=== PATIENT | male | born 2005 | race Caucasian/White ===

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

== ENCOUNTER 2023-04-06 16:38 | Inpatient (IN) | payer MEDICAID, SELFPAY ==
[2023-04-06 16:39] VITALS: BP 142/84; PULSE 100; RESP 18; TEMP 36.6; O2SAT 97; BMI 37.6
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
[2023-04-06 17:13] LABS: Add Urine Microscopic? NO; Charge for UA Resulting for Rev
[2023-04-06 17:19] LABS: Bilirubin Urine Neg (Negative); Blood Urine Neg (Negative); Glucose Urine UA Norm (Normal); Ketones Urine Negative (Negative); Leukocyte Esterase Urine Negative (Negative); Nitrate Urine Negative (Negative); Protein Urine Neg (Negative); Urine Appearance Clear (CLEAR); Urine Color Yellow (Yellow); Urobilinogen Urine Norm (Negative); pH Urine 6 (5-7)
[2023-04-06 17:49] VITALS: RESP 18; O2SAT 100
[2023-04-06 17:57] VITALS: BP 149/91; PULSE 84; RESP 16; TEMP 36.5; O2SAT 96
[2023-04-06 18:01] LABS: Basophils # 0.1 10^3/uL (0.0-0.1); Basophils % 0.8 %; Eosinophils # 0.2 10^3/uL (0.0-0.8); Hematocrit 50.2 % (37-53); Lymphocytes # 2.7 10^3/uL (1.5-6.5); Mean Corpuscular HGB Conc 32.7 g/dL (30-55); Mean Corpuscular Hemoglobin 29.5 pg (27-33); Mean Corpuscular Volume 90.3 fl (82-101); Mean Platelet Volume 10.4 fL (7.4-10.4); Monocytes # 0.8 10^3/uL (0.2-0.9); Neutrophils # 7.35 10^3/uL (1.8-8.0); Neutrophils % 65.8 %; Nucleated Red Blood Cells % 0 %; Platelet Count 227 10^3/cmm (157-399); Red Blood Count 5.56 10^6/uL (3.85-5.65); Red Cell Distribution Width 13.1 % (12.1-15.1); White Blood Count 11.16 10^3/uL (4.5-13.0)
[2023-04-06 18:29] LABS: Acetaminophen < 5.0 ug/mL (10-30); Alanine Aminotransferase 24 U/L (0-41); Albumin Level 3.9 g/dL (3.5-5.2); Alkaline Phosphatase 68 U/L (40-130); Aspartate Amino Transferase 18 U/L (0-40); Blood Urea Nitrogen 11 mg/dL (6-20); Calcium 9.2 mg/dL (8.5-10.5); Carbon Dioxide 20 mmol/L (22-29); Chloride 103 mmol/L (98-107); Globulin 3.4 g/dL (1.3-4.6); Glomerular Filtration Rate 173.6 mL/min (90-130); Glucose 107 mg/dL (65-115); Osmolality Calculated 278 mOsm/kg (285-295); Salicylate < 0.3 mg/dL (3-10); Sodium 134 mmol/L (136-145); Total Bilirubin 0.2 mg/dL (0.15-1.2); Total Protein 7.3 g/dL (6.6-8.7)
[2023-04-06 18:31] LABS: Anion Gap 14.9 (5-19); Potassium 3.9 mmol/L (3.5-5.1)
[2023-04-06 20:25] VITALS: BP 139/82; PULSE 115; RESP 18; TEMP 36.6; O2SAT 97
[2023-04-07 06:00] VITALS: BP 151/83; PULSE 77; RESP 16; TEMP 36.5; O2SAT 95
[2023-04-07] MEDS: escitalopram 10 mg Tablet 20 MG PO (12:24)
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
[2023-04-07 14:00] VITALS: BP 142/90; PULSE 88; RESP 18; TEMP 36.6; O2SAT 93
[2023-04-07] MEDS: acetaminophen 325 mg Tablet 650 MG PO (15:08)
[2023-04-07] MEDS: lurasidone 20 mg Tablet PO (17:59)
--- NOTE | 2023-04-07 18:02 | XRR_ITS ---
PROCEDURE INFORMATION: Exam: XR Right Wrist Exam date and time: 04/07/2023 6:58 PM Age: 17 years old Clinical indication: Right; Patient HX: RT wrist pain after punching wall TECHNIQUE: Imaging protocol: Radiologic exam of the right wrist. Views: 1 or 2 views. COMPARISON: No relevant prior studies available. FINDINGS: Bones/joints: Normal. Soft tissues: Normal. XR/XR wrist RT 2V [id number] IMPRESSION: No acute findings.
[2023-04-07 20:30] VITALS: RESP 16; TEMP 36.3
[2023-04-08 06:00] VITALS: BP 138/78; PULSE 107; RESP 18; TEMP 36.3; O2SAT 97
[2023-04-08] MEDS: escitalopram 10 mg Tablet 20 MG PO (08:16)
[2023-04-08 13:59] VITALS: BP 134/77; PULSE 85; RESP 17; TEMP 36.4; O2SAT 95
[2023-04-08] MEDS: lurasidone 20 mg Tablet PO (17:49)
[2023-04-08] MEDS: OLANZapine 5 mg ODT PO (18:45)
[2023-04-08 20:07] VITALS: BP 148/102; PULSE 88; RESP 16; TEMP 36.2; O2SAT 97
[2023-04-09 06:00] VITALS: BP 133/67; PULSE 80; RESP 16; TEMP 35.8; O2SAT 97
[2023-04-09] MEDS: escitalopram 10 mg Tablet 20 MG PO (08:48)
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
[2023-04-09 13:06] VITALS: BP 133/67; PULSE 80; RESP 16; TEMP 35.8; O2SAT 97
--- NOTE | 2023-04-09 18:16 | P.NPUPN_ITS ---
Subjective NPU 2 Subjective: John Hathaway is a 17 year old male with a history of multiple inpatient hospitalizations who presented to the emergency department for with increased thoughts of hurting himself and others. He had reported continued problems with anger and irritability. He was agreeable to a change in his medication to manage his mood swings. Mental Status Exam 2 MSE Comments: This is an obese white male in hospital scrubs with adequate grooming and limited eye contact. No abnormal movements except for psychomotor retardation. He was mostly cooperative with exam in moderate distress. Speech was productive with normal rate and volume. His mood was described stressed. His affect was irritable. Thought process was linear. Thought content: Patient endorsed suicidal ideation with no plan. He denied any homicidal ideation. there were no delusions reported or noted, he did not report auditory or visual hallucinations and did not appear to be attending to internal stimuli. Attention span was limited. and memory appeared poor with inability to recall specific information. He was alert and oriented times person and place. Insight, judgment and impulse control were impaired. Intellectual ability appears within normal limits. Vitals/I&O/Wt Last Vital Signs Temp 96.4 F L 04/09/23 13:06 Pulse 80 04/09/23 13:06 Resp 16 04/09/23 13:06 BP 133/67 04/09/23 13:06 Pulse Ox 97 04/09/23 13:06 O2 Del Method Room Air 04/09/23 06:00 Data NPU 04/06/23 17:50 04/06/23 17:50 A&P Assessment and plan (1) Bipolar disorder, curr episode mixed, severe, w/o psychotic features: (2) Unable to control anger: (3) Oppositional defiant disorder with chronic irritability and anger: (4) ADHD (attention deficit hyperactivity disorder), combined type: Plan This is a an 17-year-old white male previously diagnosed with oppositional defiant disorder, bipolar disorder, and adhd admitted with homicidal and suicidal ideation complaints of worsening irritability. He continues to have poor frustration tolerance and would likely benefit from trial of stimulant if mood is stabilized. 1. TO-15 minute med checks 2. Will gather collateral information 3. Engage patient in individual, group and milieu therapy 4. Continue latuda and lexapro as prescribed. 5. Right hand x-ray. Involuntary Hold Information 2 96 Hour Hold: 96 Hour Involuntary Admission: No 96 Hour Hold Ending Date: 0 08/13/22 96 Hour Hold Ending Time: 01:34 Attestations NPU 2 Medical Necessity Statement*: Psychiatric hospitalization is medically necessary to prevent access to lethal means, to reevaluate medication and to coordinate a safe discharge.? Patient's likely length of stay 1-2 days.? ? Coding Level of Care Code Acute Code for g Fwd Diagnoses Bipolar disorder, curr episode mixed, severe, w/o psychotic features F31.63 Unable to control anger R45.4 Oppositional defiant disorder with chronic irritability and anger F91.3; R45.4 ADHD (attention deficit hyperactivity disorder), combined type F90.2
== END 2023-04-09 14:20 | disposition home or self-care (01) | DRG 885 ==
LOC: ER 17:04 → NP 17:16
PROVIDERS: Emergency Medicine; Admitting Provider Psychiatry & Neurology Psychiatry; Emergency Provider Family Medicine; Visit Provider Psychiatry & Neurology Psychiatry
DX: F31.63 Bipolar disorder, current episode mixed, severe, without psychotic features (principal); R45.851 Suicidal ideations; F91.3 Oppositional defiant disorder; F90.2 Attention-deficit hyperactivity disorder, combined type; F60.3 Borderline personality disorder; J45.909 Unspecified asthma, uncomplicated; E66.9 Obesity, unspecified; Z68.39 Body mass index [BMI] 39.0-39.9, adult
CPT/HCPCS: 36415; 73100; 80053; 80307; 81003; 85025; 97150; 97165; 99285

== ENCOUNTER 2023-05-07 13:08 | Inpatient (IN) | payer MEDICAID, SELFPAY ==
[2023-05-07 13:10] VITALS: BP 151/82; PULSE 83; RESP 16; TEMP 36.6; O2SAT 99; BMI 40.6
--- NOTE | 2023-05-07 13:22 | W.ED.PSYCHS ---
HPI - Psych General: Chief Complaint: Psychiatric Symptoms Stated Complaint: SI Time Seen by Provider: 05/07/23 13:09 Source: patient Mode of arrival: ambulatory Limitations: no limitations History of Present Illness: 17-year-old male states that he has had a long history of depression along with bipolar disorder has had multiple inpatient [facility]. He states last 2 days has been having increasing thoughts of self-harm and suicidal thoughts. He states he is concerned he may harm himself and wants to get help. Associated symptoms: Reports depression and suicidal ideation Review of Systems Const: Denies: fever(s), chills, body aches or change in appetite ENMT: Denies: throat pain or dental pain Card: Denies: chest pain Resp: Denies: dyspnea GI: Denies: abdominal pain, nausea, vomiting or diarrhea Musc: Denies: neck pain or back pain Skin/Breast: Denies: rash Neuro: Denies: headache(s) Psych: Reports: depression and suicidal ideation [facility] PFSH: Medical History Bipolar disorder, curr episode mixed, severe, w/o psychotic features Psychiatric care No pertinent past medical history Surgical History No history of previous surgery Social History Smoking and tobacco/nicotine status: never used tobacco/nicotine Second hand smoke exposure: No Alcohol intake: former Substance/Drug Use: former Current gender identity: Male Physical Exam Const: COMMON NORMALS: no acute distress, patient oriented x3 and healthy appearing HENMT: COMMON NORMALS: normocephalic and atraumatic HEAD & SCALP: normocephalic and atraumatic Eye: COMMON NORMALS: Equal, round and reactive pupils present and EOMs intact bilaterally PUPIL: Yes Equal, round and reactive pupils present Neck/C-Spine: COMMON NORMALS: full ROM and supple Chest: COMMONS NORMALS: normal inspection of the chest and normal palpation of entire chest wall Resp: COMMON NORMALS: normal respiratory effort, No retractions, No use of accessory muscles and clear to auscultation bilaterally AUSCULTATION: clear to auscultation bilaterally Cardio: COMMON NORMALS: regular rate, regular rhythm and No murmurs present (Cardio) RATE: regular rate RHYTHM: regular rhythm GI: COMMON NORMALS: Normal to inspection, nondistended, normoactive bowel sounds present, Soft to palpation, non-tender and no masses PALPATION: Yes Soft to palpation Extremity: COMMON NORMALS: normal to inspection and full ROM Neuro: COMMON NORMALS: patient oriented x3, moves all extremities and no focal motor deficits Psych: COMMON NORMALS: mental status grossly normal, Normal thought process present and cooperative THOUGHT PROCESS: Normal thought process present Skin: COMMON NORMALS: no rashes or lesions noted and no wounds GENERAL SKIN EXAM: no rashes or lesions noted Course Vital Signs: Vital signs: Vital Signs Temperature 97.8 F 05/07/23 13:10 Pulse Rate 83 05/07/23 13:10 Respiratory Rate 16 05/07/23 13:10 Blood Pressure 151/82 05/07/23 13:10 Pulse Oximetry 99 05/07/23 13:10 MDM - Psych Medical Decision Making Patient presents here with Medical Records I reviewed the patient's medical records. Lab Data I reviewed the patient's lab results. 05/07/23 13:40 05/07/23 13:40 Laboratory Results WBC 11.52 10^3/uL (4.5-13.0) 05/07/23 13:40 RBC 5.37 10^6/uL (3.85-5.65) 05/07/23 13:40 Hgb 16.00 g/dL (13.2-15.6) H 05/07/23 13:40 Hct 48.8 % (37-53) 05/07/23 13:40 MCV 90.9 fl (82-101) 05/07/23 13:40 MCH 29.8 pg (27-33) 05/07/23 13:40 MCHC 32.8 g/dL (30-55) 05/07/23 13:40 RDW 13.6 % (12.1-15.1) 05/07/23 13:40 Plt Count 310 10^3/cmm (157-399) 05/07/23 13:40 MPV 10.7 fL (7.4-10.4) H 05/07/23 13:40 Neut % (Auto) 61.5 % 05/07/23 13:40 Lymph % (Auto) 29.3 % 05/07/23 13:40 Mckenzie % (Auto) 6.6 % 05/07/23 13:40 Eos % (Auto) 1.3 % 05/07/23 13:40 Baso % (Auto) 1.0 % 05/07/23 13:40 Neut # (Auto) 7.08 10^3/uL (1.8-8.0) 05/07/23 13:40 Lymph # (Auto) 3.4 10^3/uL (1.5-6.5) 05/07/23 13:40 Mckenzie # (Auto) 0.8 10^3/uL (0.2-0.9) 05/07/23 13:40 Eos # (Auto) 0.2 10^3/uL (0.0-0.8) 05/07/23 13:40 Baso # (Auto) 0.1 10^3/uL (0.0-0.1) 05/07/23 13:40 Nucleated RBC % (auto) 0 % 05/07/23 13:40 Nucleated RBCs # 0.0 /100WBC 05/07/23 13:40 Sodium 140 mmol/L (136-145) 05/07/23 13:40 Potassium 3.9 mmol/L (3.5-5.1) 05/07/23 13:40 Chloride 106 mmol/L (98-107) 05/07/23 13:40 Carbon Dioxide 21 mmol/L (22-29) L 05/07/23 13:40 Anion Gap 16.9 (5-19) 05/07/23 13:40 BUN 8 mg/dL (6-20) 05/07/23 13:40 Creatinine 0.6 mg/dL (0.7-1.2) L 05/07/23 13:40 GFR Calculation 173.6 mL/min (90-130) H 05/07/23 13:40 Glucose 89 mg/dL (65-115) 05/07/23 13:40 Calculated Osmolality 288 mOsm/kg (285-295) 05/07/23 13:40 Calcium 9.4 mg/dL (8.5-10.5) 05/07/23 13:40 Total Bilirubin 0.6 mg/dL (0.15-1.2) 05/07/23 13:40 AST 17 U/L (0-40) 05/07/23 13:40 ALT 23 U/L (0-41) 05/07/23 13:40 Alkaline Phosphatase 68 U/L (40-130) 05/07/23 13:40 Total Protein 7.7 g/dL (6.6-8.7) 05/07/23 13:40 Albumin 4.5 g/dL (3.5-5.2) 05/07/23 13:40 Globulin 3.2 g/dL (1.3-4.6) 05/07/23 13:40 Salicylates < 0.3 mg/dL (3-10) L 05/07/23 13:40 Acetaminophen < 5.0 ug/mL (10-30) L 05/07/23 13:40 Ethyl Alcohol < 10 mg/dL (0-10) 05/07/23 13:40 No radiology studies performed this visit Discharge Plan Discharge Condition: Stable Prescriptions: No Action escitalopram oxalate [Lexapro] 20 mg tablet 20 mg PO DAILY Qty: 30 3RF lurasidone [Latuda] 20 mg Tablet 20 mg PO 1800 30 Days Qty: 30 1RF Rx Instructions: take with at least 300 calories at 6-7 pm. Coding Level of Care Code ED Assistant Administrator for Lincoln Spencer
--- NOTE | 2023-05-07 13:45 | PC.NURSE ---
96 hour hold rights read and reviewed with patient. Patient verbalized understandings. Copy of rights left at the bedside.
[2023-05-07 13:50] LABS: Basophils # 0.1 10^3/uL (0.0-0.1); Eosinophils # 0.2 10^3/uL (0.0-0.8); Eosinophils % 1.3 %; Hematocrit 48.8 % (37-53); Lymphocytes # 3.4 10^3/uL (1.5-6.5); Lymphocytes % 29.3 %; Mean Corpuscular HGB Conc 32.8 g/dL (30-55); Mean Corpuscular Hemoglobin 29.8 pg (27-33); Mean Corpuscular Volume 90.9 fl (82-101); Mean Platelet Volume 10.7 fL (7.4-10.4); Monocytes # 0.8 10^3/uL (0.2-0.9); Monocytes % 6.6 %; Neutrophils # 7.08 10^3/uL (1.8-8.0); Neutrophils % 61.5 %; Nucleated Red Blood Cells % 0 %; Platelet Count 310 10^3/cmm (157-399); Red Blood Count 5.37 10^6/uL (3.85-5.65); Red Cell Distribution Width 13.6 % (12.1-15.1); White Blood Count 11.52 10^3/uL (4.5-13.0)
[2023-05-07 14:07] LABS: Acetaminophen < 5.0 ug/mL (10-30); Alanine Aminotransferase 23 U/L (0-41); Albumin Level 4.5 g/dL (3.5-5.2); Alcohol Level < 10 mg/dL (0-10); Alkaline Phosphatase 68 U/L (40-130); Anion Gap 16.9 (5-19); Aspartate Amino Transferase 17 U/L (0-40); Blood Urea Nitrogen 8 mg/dL (6-20); Calcium 9.4 mg/dL (8.5-10.5); Carbon Dioxide 21 mmol/L (22-29); Chloride 106 mmol/L (98-107); Creatinine Clr Calc Pharmacy 274.4291; Globulin 3.2 g/dL (1.3-4.6); Glomerular Filtration Rate 173.6 mL/min (90-130); Glucose 89 mg/dL (65-115); Osmolality Calculated 288 mOsm/kg (285-295); Potassium 3.9 mmol/L (3.5-5.1); Salicylate < 0.3 mg/dL (3-10); Sodium 140 mmol/L (136-145); Total Bilirubin 0.6 mg/dL (0.15-1.2); Total Protein 7.7 g/dL (6.6-8.7)
[2023-05-07 14:15] LABS: Amphetamines Screen Urine Negative (Negative); Barbiturates Screen Urine Negative (Negative); Benzodiazepines Screen Urine Negative (Negative); Cocaine Screen Urine Negative (Negative); Opiate Screen Urine Negative (Negative); PCP Screen Urine Negative (Negative); THC Screen Urine Negative (Negative)
[2023-05-07 16:06] VITALS: BP 146/77; PULSE 73; RESP 16; TEMP 36.3; O2SAT 98
[2023-05-07] MEDS: trazodone 50 mg Tablet PO (20:02)
[2023-05-07] MEDS: lurasidone 20 mg Tablet PO (20:03)
[2023-05-07 20:07] VITALS: BP 132/82; PULSE 80; RESP 18; TEMP 36.5; O2SAT 98
[2023-05-08 06:00] VITALS: BP 140/83; PULSE 99; RESP 17; TEMP 36.5; O2SAT 98
[2023-05-08] MEDS: escitalopram 10 mg Tablet 20 MG PO (08:28)
[2023-05-08 12:19] LABS: Basophils # 0.1 10^3/uL (0.0-0.1); Basophils % 0.9 %; Eosinophils # 0.2 10^3/uL (0.0-0.8); Eosinophils % 1.7 %; Hematocrit 47.6 % (37-53); Lymphocytes % 28.6 %; Mean Corpuscular HGB Conc 32.4 g/dL (30-55); Mean Corpuscular Hemoglobin 29.8 pg (27-33); Mean Corpuscular Volume 92.1 fl (82-101); Mean Platelet Volume 10.8 fL (7.4-10.4); Monocytes # 0.8 10^3/uL (0.2-0.9); Monocytes % 7.5 %; Neutrophils # 6.46 10^3/uL (1.8-8.0); Neutrophils % 60.9 %; Nucleated Red Blood Cells % 0 %; Platelet Count 263 10^3/cmm (157-399); Red Blood Count 5.17 10^6/uL (3.85-5.65); Red Cell Distribution Width 13.4 % (12.1-15.1); White Blood Count 10.62 10^3/uL (4.5-13.0)
[2023-05-08 12:37] LABS: Alanine Aminotransferase 23 U/L (0-41); Alkaline Phosphatase 73 U/L (40-130); Aspartate Amino Transferase 21 U/L (0-40); Globulin 2.8 g/dL (1.3-4.6); Total Bilirubin 0.3 mg/dL (0.15-1.2); Total Protein 6.8 g/dL (6.6-8.7)
[2023-05-08 14:00] VITALS: BP 128/77; PULSE 94; RESP 18; TEMP 36.3; O2SAT 96
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
[2023-05-08] MEDS: lurasidone 20 mg Tablet 40 MG PO (17:23)
[2023-05-08] MEDS: divalproex ER 500 mg Tablet (24H) PO (17:23)
[2023-05-08] MEDS: OLANZapine 5 mg ODT PO (17:24)
[2023-05-08 20:31] VITALS: BP 125/99; PULSE 104; RESP 18; TEMP 36.6; O2SAT 98
[2023-05-09 06:00] VITALS: BP 120/80; PULSE 98; RESP 17; TEMP 36.6; O2SAT 98
[2023-05-09] MEDS: divalproex ER 500 mg Tablet (24H) PO (08:31)
[2023-05-09] MEDS: escitalopram 10 mg Tablet PO (08:31)
--- NOTE | 2023-05-09 08:37 | PC.NURSE ---
UP IN ROOM, DENIES SI/HI AND AVH AVH AT THIS TIME. PT REPORTS HE SLEPT WELL AND WOULD LIKE THIS RN TO TELL THE DR. I'M FEELING READY TO LEAVE TODAY OR TOMORROW, THE MEDICINE HE PUT ME ON REALLY HAS WORKED AND I FEEL CALM AND REALLY GOOD. PT RATES ANXIETY3/10 AND DEPRESSION /10. DENIES THE NEED FOR PRN MEDICATIONS. PT MOOD IS UPBEAT AND STATES HE IS REALLY HAPPY I FEEL SO GOOD, DENIES PAIN. ALL QUESTIONS WERE ANSWERED AND SUPPORT WAS VOICED.
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
[2023-05-09 12:10] VITALS: BP 120/80; PULSE 98; RESP 17; TEMP 36.6; O2SAT 98
== END 2023-05-09 14:52 | disposition home or self-care (01) | DRG 885 ==
LOC: ER 13:23 → NP 15:05
PROVIDERS: Admitting Provider Psychiatry & Neurology Psychiatry; Emergency Provider Emergency Medicine; Visit Provider Psychiatry & Neurology Psychiatry
DX: F31.63 Bipolar disorder, current episode mixed, severe, without psychotic features (principal); Z68.41 Body mass index [BMI] 40.0-44.9, adult; E66.9 Obesity, unspecified; F91.3 Oppositional defiant disorder; F90.2 Attention-deficit hyperactivity disorder, combined type; J45.909 Unspecified asthma, uncomplicated
CPT/HCPCS: 36415; 80053; 80076; 80306; 80307; 85025; 97150; 97165; 99285

== ENCOUNTER 2023-06-26 06:00 | Outpatient (RCR) | payer MEDICAID, SELFPAY | END 2023-07-19 23:59 | disposition home or self-care (01) | LOC: MPT 06:00 | PROVIDERS: Visit Provider Nurse Practitioner Family | DX: M54.2 Cervicalgia (principal) | CPT/HCPCS: 97110; 97162 ==

== ENCOUNTER 2023-09-30 03:57 | Inpatient (IN) | payer MEDICAID, SELFPAY ==
[2023-09-30 03:57] VITALS: BP 145/95; PULSE 98; RESP 16; TEMP 36.8; O2SAT 98; BMI 37.6
--- NOTE | 2023-09-30 04:19 | ED.C_ITS ---
HPI - Psych 2 General: Chief Complaint: Psychiatric Symptoms Stated Complaint: HI Time Seen by Provider: 09/30/23 04:01 History of Present Illness: 18-year-old male presenting by EMS from [facility] with a history of homicidal ideation. Thoughts worsened over a week or so. There is a particular person he wishes to harm to because of a traumatic event to family. He denies recent illness. He has had multiple admissions in the past to multiple psychiatric facilities. Related Data Previous Rx's Medication Instructions Recorded divalproex 500 mg tablet,extended 500 mg PO BID #60 tabs 07/26/23 release 24 hr escitalopram oxalate 10 mg tablet 10 mg PO DAILY 30 days #30 tabs 07/26/23 diclofenac sodium 1 % topical gel 2 g topical QID #100 grams 08/30/23 (Arthritis Pain (diclofenac)) tizanidine 2 mg tablet 2 mg PO BID PRN muscle spasticity 08/30/23 #20 tabs Allergies Allergy/AdvReac Type Severity Reaction Status Date / Time hydroxyzine Allergy Severe Dizzy, Verified 08/30/23 13:48 seeing tri-vision, anaphylaxis. menthol [From BenGay] Allergy Severe Throat Verified 08/30/23 13:48 swelleed methyl salicylate Allergy Severe Throat Verified 08/30/23 13:48 [From BenGay] swelleed amoxicillin Allergy Intermediate ALGY-Rash Verified 08/30/23 13:48 cefdinir [From Omnicef] Allergy Unknown Unknown Verified 08/30/23 13:48 PFSH ED 2 PFSH: Medical History Bipolar disorder, curr episode mixed, severe, w/o psychotic features Psychiatric care No pertinent past medical history Surgical History No history of previous surgery Social History Smoking and tobacco/nicotine status: never used tobacco/nicotine Second hand smoke exposure: No Alcohol intake: former Substance/Drug Use: former Current gender identity: Male Physical Exam 2 Const: COMMON NORMALS: no acute distress GENERAL APPEARANCE: cooperative; not ill appearing and not frail appearing HENMT: COMMON NORMALS: normocephalic, atraumatic and Normal external nose present HEAD & SCALP: normocephalic and atraumatic FACE & SINUS: normal facial exam and face symmetric NOSE: Normal external nose present Eye: COMMON NORMALS: Equal, round and reactive pupils present and EOMs intact bilaterally PUPIL: Yes Equal, round and reactive pupils present Neck/C-Spine: GENERAL: Yes trachea midline Chest: CHEST: Yes Symmetrical chest wall rise Resp: COMMON NORMALS: normal respiratory effort, No retractions, No use of accessory muscles and clear to auscultation bilaterally AUSCULTATION: clear to auscultation bilaterally Cardio: COMMON NORMALS: regular rate and regular rhythm RATE: regular rate RHYTHM: regular rhythm GI: COMMON NORMALS: Normal to inspection, nondistended, normoactive bowel sounds present Extremity: COMMON NORMALS: no pedal edema Neuro: DONNA COMA SCALE: document GCS findings [place] coma scale eye opening: Spontaneous [place] coma scale verbal response: Orientated [place] coma scale motor response: Obey commands Donna coma scale total score: 15 S ENSORY EXAM: Yes extremities (intact) Psych: COMMON NORMALS: speech normal SPEECH: Yes normal speech Skin: COMMON NORMALS: no rashes or lesions noted GENERAL SKIN EXAM: no rashes or lesions noted Course 2 Vital Signs: Vital signs: Vital Signs Temperature 98.3 F 09/30/23 03:57 Pulse Rate 98 09/30/23 03:57 Respiratory Rate 16 09/30/23 03:57 Blood Pressure 145/95 09/30/23 03:57 Pulse Oximetry 98 09/30/23 03:57 Oxygen Delivery Me thod Room Air 09/30/23 03:57 MDM - Psych Medical Decision Making Medically the patient is stable. Laboratory is completely benign. Evidently, our NPU is currently full but there will be discharges this morning. He will be admitted after discharges as there are multiple transfers going out to distant facilities this morning requiring an exhaustion of local EMS resources such that a bed will be available here before transport will be available to take the patient elsewehre. Spoke with psychiatry. They accept admission. He remains medically stable. Lab Data 09/30/23 04:48 09/30/23 04:48 Laboratory Results WBC 12.13 10^3/uL (4.5-13.0) 09/30/23 04:48 RBC 4.89 10^6/uL (3.85-5.65) 09/30/23 04:48 Hgb 14.60 g/dL (13.2-15.6) 09/30/23 04:48 Hct 44.8 % (37-53) 09/30/23 04:48 MCV 91.6 fl (82-101) 09/30/23 04:48 MCH 29.9 pg (27-33) 09/30/23 04:48 MCHC 32.6 g/dL (30-55) 09/30/23 04:48 RDW 13.0 % (12.1-15.1) 09/30/23 04:48 Plt Count 330 10^3/cmm (157-399) 09/30/23 04:48 MPV 10.9 fL (7.4-10.4) H 09/30/23 04:48 Neut % (Auto) 60.0 % 09/30/23 04:48 Lymph % (Auto) 29.7 % 09/30/23 04:48 [place] % (Auto) 7.9 % 09/30/23 04:48 Eos % (Auto) 1.2 % 09/30/23 04:48 Baso % (Auto) 0.9 % 09/30/23 04:48 Neut # (Auto) 7.28 10^3/uL (1.8-8.0) 09/30/23 04:48 Lymph # (Auto) 3.6 10^3/uL (1.5-6.5) 09/30/23 04:48 [place] # (Auto) 1.0 10^3/uL (0.2-0.9) H 09/30/23 04:48 Eos # (Auto) 0.1 10^3/uL (0.0-0.8) 09/30/23 04:48 Baso # (Auto) 0.1 10^3/uL (0.0-0.1) 09/30/23 04:48 Nucleated RBC % (auto) 0 % 09/30/23 04:48 Nucleated RBCs # 0.0 /100WBC 09/30/23 04:48 Sodium 139 mmol/L (136-145) 09/30/23 04:48 Potassium 4.2 mmol/L (3.5-5.1) 09/30/23 04:48 Chloride 104 mmol/L (98-107) 09/30/23 04:48 Carbon Dioxide 22 mmol/L (22-29) 09/30/23 04:48 Anion Gap 17.2 (5-19) 09/30/23 04:48 BUN 10 mg/dL (6-20) 09/30/23 04:48 Creatinine 0.7 mg/dL (0.7-1.2) 09/30/23 04:48 GFR Calculation 143.8 mL/min (90-130) H 09/30/23 04:48 Glucose 96 mg/dL (65-115) 09/30/23 04:48 Calculated Osmolality 287 mOsm/kg (285-295) 09/30/23 04:48 Calcium 9.1 mg/dL (8.5-10.5) 09/30/23 04:48 Total Bilirubin 0.2 mg/dL (0.15-1.2) 09/30/23 04:48 AST 13 U/L (0-40) 09/30/23 04:48 ALT 18 U/L (0-41) 09/30/23 04:48 Alkaline Phosphatase 67 U/L (40-130) 09/30/23 04:48 Total Protein 7.3 g/dL (6.6-8.7) 09/30/23 04:48 Albumin 4.1 g/dL (3.5-5.2) 09/30/23 04:48 Globulin 3.2 g/dL (1.3-4.6) 09/30/23 04:48 Urine Color Yellow (Yellow) 09/30/23 04:06 Urine Appearance Clear (CLEAR) 09/30/23 04:06 Urine pH 5.5 (5-7) 09/30/23 04:06 Ur Specific [place] 1.022 (1.005-1.030) 09/30/23 04:06 Urine Protein Negative (Negative) 09/30/23 04:06 Urine Glucose (UA) Negative (Normal) 09/30/23 04:06 Urine Ketones Negative (Negative) 09/30/23 04:06 Urine Blood Negative (Negative) 09/30/23 04:06 Urine Nitrate Negative (Negative) 09/30/23 04:06 Urine Bilirubin Negative (Negative) 09/30/23 04:06 Urine Urobilinogen 1.0 mg/dL (Negative) 09/30/23 04:06 Ur Leukocyte Esterase Negative (Negative) 09/30/23 04:06 Urine RBC 0-2 /hpf (0-2) 09/30/23 04:06 Urine WBC 0-5 /hpf (0-5) 09/30/23 04:06 Ur Squamous Epith Cells 0-5 /hpf (0-5) 09/30/23 04:06 Amorphous Sediment Not Reportable 09/30/23 04:06 Urine Bacteria None seen /hpf (NONE) 09/30/23 04:06 Hyaline Casts 0-4 /lpf H 09/30/23 04:06 Salicylates < 0.3 mg/dL (3-10) L 09/30/23 04:48 Urine Opiates Screen Negative ng/mL (Negative) 09/30/23 04:06 Acetaminophen < 5.0 ug/mL (10-30) L 09/30/23 04:48 Ur Barbiturates Screen Negative ng/mL (Negative) 09/30/23 04:06 Ur Phencyclidine Scrn Negative ng/mL (Negative) 09/30/23 04:06 Ur Amphetamines Screen Negative ng/mL (Negative) 09/30/23 04:06 U Benzodiazepines Scrn Negative ng/mL (Negative) 09/30/23 04:06 Urine Cocaine Screen Negative ng/mL (Negative) 09/30/23 04:06 U Marijuana (THC) Screen Negative ng/mL (Negative) 09/30/23 04:06 Ethyl Alcohol < 10 mg/dL (0-10) 09/30/23 04:48 No radiology studies performed this visit Discharge Plan Discharge Patient Disposition: Admitted As Inpatient Clinical Impression: ADHD (attention deficit hyperactivity disorder), combined type, Homicidal ideations Condition: Stable Coding Level of Care Code ED Infertility Nurse for Lincoln Spencer
[2023-09-30 04:43] LABS: Charge for UA Resulting for Rev
[2023-09-30 04:46] LABS: Bilirubin Urine Negative (Negative); Blood Urine Negative (Negative); Glucose Urine UA Negative (Normal); Ketones Urine Negative (Negative); Leukocyte Esterase Urine Negative (Negative); Nitrate Urine Negative (Negative); Protein Urine Negative (Negative); Specific Gravity, Urine 1.022 (1.005-1.030); Urine Appearance Clear (CLEAR); Urine Color Yellow (Yellow); pH Urine 5.5 (5-7)
[2023-09-30 04:51] LABS: Basophils # 0.1 10^3/uL (0.0-0.1); Basophils % 0.9 %; Eosinophils # 0.1 10^3/uL (0.0-0.8); Eosinophils % 1.2 %; Hematocrit 44.8 % (37-53); Lymphocytes # 3.6 10^3/uL (1.5-6.5); Lymphocytes % 29.7 %; Mean Corpuscular HGB Conc 32.6 g/dL (30-55); Mean Corpuscular Hemoglobin 29.9 pg (27-33); Mean Corpuscular Volume 91.6 fl (82-101); Mean Platelet Volume 10.9 fL (7.4-10.4); Monocytes % 7.9 %; Neutrophils # 7.28 10^3/uL (1.8-8.0); Nucleated Red Blood Cells % 0 %; Platelet Count 330 10^3/cmm (157-399); Red Blood Count 4.89 10^6/uL (3.85-5.65); White Blood Count 12.13 10^3/uL (4.5-13.0)
[2023-09-30 04:51] LABS: Bacteria Urine None Seen /hpf; Hyaline Casts Urine 0-4 /lpf; RBC Urine 0-2 /hpf (0-2); Squamous Epithelial Cell Urine 0-5 /hpf (0-5); WBC Urine 0-5 /hpf (0-5)
[2023-09-30 04:53] LABS: Amphetamines Screen Urine Negative (Negative); Barbiturates Screen Urine Negative (Negative); Benzodiazepines Screen Urine Negative (Negative); Cocaine Screen Urine Negative (Negative); Opiate Screen Urine Negative (Negative); PCP Screen Urine Negative (Negative); THC Screen Urine Negative (Negative)
[2023-09-30 05:08] LABS: Acetaminophen < 5.0 ug/mL (10-30); Alanine Aminotransferase 18 U/L (0-41); Albumin Level 4.1 g/dL (3.5-5.2); Alcohol Level < 10 mg/dL (0-10); Alkaline Phosphatase 67 U/L (40-130); Anion Gap 17.2 (5-19); Aspartate Amino Transferase 13 U/L (0-40); Blood Urea Nitrogen 10 mg/dL (6-20); Calcium 9.1 mg/dL (8.5-10.5); Carbon Dioxide 22 mmol/L (22-29); Chloride 104 mmol/L (98-107); Creatinine Clr Calc Pharmacy 224.2095; Globulin 3.2 g/dL (1.3-4.6); Glomerular Filtration Rate 143.8 mL/min (90-130); Glucose 96 mg/dL (65-115); Osmolality Calculated 287 mOsm/kg (285-295); Potassium 4.2 mmol/L (3.5-5.1); Salicylate < 0.3 mg/dL (3-10); Sodium 139 mmol/L (136-145); Total Bilirubin 0.2 mg/dL (0.15-1.2); Total Protein 7.3 g/dL (6.6-8.7)
[2023-09-30] MEDS: OLANZapine 10 mg ODT 20 MG PO (06:05)
[2023-09-30 06:33] VITALS: BP 120/75; PULSE 71; RESP 16; O2SAT 96
[2023-09-30 09:03] VITALS: BP 136/87; PULSE 91; RESP 20; TEMP 36.6; O2SAT 98
--- NOTE | 2023-09-30 10:10 | PC.NURSE ---
ADMIT NOTE PT BROUGHT TO OUR ER BY EMS WITH C/O HI. ER NURSE STATES THAT PT REFUSED TO SPECIFY WHO HE WANTED TO HARM. UPON ADMIT TO THE NPU PT APPEARS LETHARGIC. PT STATES IM COMING OFF OF 4000MG OF CAFFEINE. PT STATES THAT HE HAS BEEN CONSUMING HIGH QUANTITIES OF CAFFEINE THIS WEEK. PT ENDORSES THAT THE CAFFEINE MAY HAVE MADE HIS ANGER ISSUES WORSE. PT DID NOT ENDORSE SI/HI/AH/VH TO THIS NURSE PT STATED THAT HE NEEDS ASSISTANCE WITH HIS ANGER ISSUES. PT DENIES SUBSTANCE ABUSE. PT ENDORSES STABLE LIVING SITUATION AND A STABLE SUPPORT. PT MADE VERY LITTLE EYE CONTACT BUT APPEARED TO BE FIGHTING SLEEP THROUGHOUT THE ASSESSMENT. PT WAS COOPERATIVE WITH ASSESSMENT.
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
[2023-09-30 14:00] VITALS: BP 127/69; PULSE 62; RESP 20; TEMP 36.6; O2SAT 97
[2023-09-30 20:56] VITALS: BP 126/89; PULSE 78; RESP 17; TEMP 36.5; O2SAT 98
[2023-09-30] MEDS: divalproex ER 500 mg Tablet (24H) PO (22:13)
[2023-09-30 22:17] VITALS: PULSE 102
--- NOTE | 2023-09-30 23:48 | ECG_ITS ---
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 Measurements Intervals [place] Rate: 63 P: 38 [place]: 142 QRS: 34 QRSD: 110 T: 41 QT: 373 QTc: 383 Interpretive Statements SINUS RHYTHM NONSPECIFIC T-WAVE ABNORMALITY Compared to ECG 12/23/2019 14:57:34 No significant changes Electronically Signed On 10-01-2023 7:40:40 CDT by Timothy Flores M.D. [email or web address]
[2023-10-01 06:00] VITALS: BP 132/79; PULSE 102; RESP 16; TEMP 36.9; O2SAT 98
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
[2023-10-01] MEDS: escitalopram 10 mg Tablet PO (10:15)
[2023-10-01] MEDS: divalproex ER 500 mg Tablet (24H) PO ×2 (10:16→20:44)
[2023-10-01 14:00] VITALS: BP 151/64; PULSE 109; RESP 18; TEMP 36.6; O2SAT 96
--- NOTE | 2023-10-01 16:20 | P.NPUPN_ITS ---
Subjective NPU 2 Subjective: Patient presented today reporting that he was really tired and that he attributed that to the medication he was taking that he normally takes at bedtime. We discussed that might be possible but also might be related to him not getting caffeine at the level that he says he was taking it. We discussed switching his morning doses the bedtime. He denied any other side effects to his medication. Mental Status Exam 2 MSE Comments: This is an obese white male in hospital scrubs with adequate grooming and limited eye contact. No abnormal movements except for psychomotor retardation. Mostly cooperative with exam in mild distress. Speech was limited and decreased rate and volume. His mood was described irritable. His affect was congruent. Thought process was linear. Thought content: Patient endorsed suicidal but denied homicidal ideations, there were no delusions reported or noted, he did not report auditory or visual hallucinations and did not appear to be attending to internal stimuli. Attention and concentration were limited and memory appeared reliable, but none were formally tested. He was alert and oriented times person and place. Insight, judgment and impulse control were impaired. Intellectual ability appears limited. Vitals/I&O/Wt Last Vital Signs Temp 98 F 10/01/23 14:00 Pulse 109 H 10/01/23 14:00 Resp 18 10/01/23 14:00 BP 151/64 10/01/23 14:00 Pulse Ox 96 10/01/23 14:00 O2 Del Method Room Air 10/01/23 06:00 Weight last 48 hrs Weight 122.47 kg Data NPU 09/30/23 04:48 09/30/23 04:48 A&P Assessment and plan (1) Bipolar disorder, curr episode mixed, severe, w/o psychotic features: (2) Unable to control anger: (3) Oppositional defiant disorder with chronic irritability and anger: (4) ADHD (attention deficit hyperactivity disorder), combined type: Plan This is a 18-year-old white male previously diagnosed with oppositional defiant disorder, bipolar disorder, and adhd admitted with suicidal ideation complaints of worsening irritability overuse of caffeine and significant difficulties in his life. He continues to have poor frustration tolerance and could benefit from trial of stimulant if mood is stabilized. 1. TO-15 minute med checks 2. Will gather collateral information 3. Engage patient in individual, group and milieu therapy. 4. Continue current medication. 5. Get EKG for any cardiac issues with his caffeine overuse. Involuntary Hold Information 2 96 Hour Hold: 96 Hour Involuntary Admission: No Attestations NPU 2 Medical Necessity Statement*: Psychiatric hospitalization is medically necessary and the clinically appropriate intervention at this time. We will evaluate medication and make changes as necessary.? Likely length of stay 3-5 days.? ? Coding Level of Care Code Acute Code for Chg Fwd Diagnoses Bipolar disorder, curr episode mixed, severe, w/o psychotic features F31.63 Unable to control anger R45.4 Oppositional defiant disorder with chronic irritability and anger F91.3; R45.4 ADHD (attention deficit hyperactivity disorder), combined type F90.2
[2023-10-01 19:26] VITALS: BP 122/62; PULSE 119; RESP 18; TEMP 36.7; O2SAT 97
[2023-10-01] MEDS: trazodone 50 mg Tablet PO (20:44)
[2023-10-02 03:04] LABS: Glucose Point of Care 120 mg/dL (70-110)
[2023-10-02] MEDS: acetaminophen 325 mg Tablet 650 MG PO ×2 (05:52→16:48)
[2023-10-02 06:00] VITALS: BP 122/72; PULSE 85; RESP 18; TEMP 36.4; O2SAT 97
[2023-10-02] MEDS: divalproex ER 500 mg Tablet (24H) PO (10:00)
[2023-10-02] MEDS: escitalopram 10 mg Tablet PO (10:00)
[2023-10-02 14:00] VITALS: BP 131/73; PULSE 99; RESP 17; TEMP 36.5; O2SAT 97
--- NOTE | 2023-10-02 14:05 | P.NPUPN_ITS ---
Subjective NPU 2 Subjective: Patient presented today reporting that he is doing better and started inquiring about going home. We discussed the fact that his family was unclear about him coming home immediately. We discussed working with the social work team to figure out where they are on this issue. He denied any issues now that he is not taking the caffeine the way he was prior to admission. He denies any side effects to his medications. Mental Status Exam 2 MSE Comments: This is an obese white male in hospital scrubs with adequate grooming and limited eye contact. No abnormal movements except for psychomotor retardation. Mostly cooperative with exam in mild distress. Speech was limited but more normal rate and volume. His mood was described irritable. His affect was congruent. Thought process was linear. Thought content: Patient denied suicidal or homicidal ideations, there were no delusions reported or noted, he did not report auditory or visual hallucinations and did not appear to be attending to internal stimuli. Attention and concentration were limited and memory appeared reliable, but none were formally tested. He was alert and oriented times person and place. Insight, judgment and impulse control were impaired. Intellectual ability appears limited. Vitals/I&O/Wt Last Vital Signs Temp 97.5 F L 10/02/23 06:00 Pulse 85 10/02/23 06:00 Resp 18 10/02/23 06:00 BP 122/72 10/02/23 06:00 Pulse Ox 97 10/02/23 06:00 O2 Del Method Room Air 10/02/23 06:00 Data NPU 09/30/23 04:48 09/30/23 04:48 A&P Assessment and plan (1) Bipolar disorder, curr episode mixed, severe, w/o psychotic features: (2) Unable to control anger: (3) Oppositional defiant disorder with chronic irritability and anger: (4) ADHD (attention deficit hyperactivity disorder), combined type: Plan This is a 18-year-old white male previously diagnosed with oppositional defiant disorder, bipolar disorder, and adhd admitted with suicidal ideation complaints of worsening irritability overuse of caffeine and significant difficulties in his life. He continues to have poor frustration tolerance and could benefit from trial of stimulant if mood is stabilized. 1. TO-15 minute med checks 2. Will gather collateral information 3. Engage patient in individual, group and milieu therapy. 4. Continue current medication. Involuntary Hold Information 2 96 Hour Hold: 96 Hour Involuntary Admission: No Attestations NPU 2 Medical Necessity Statement*: Psychiatric hospitalization is medically necessary and the clinically appropriate intervention at this time. We will evaluate medication and make changes as necessary.? Likely length of stay 1-4 days.? ? Coding Level of Care Code Acute Code for Chg Fwd Diagnoses Bipolar disorder, curr episode mixed, severe, w/o psychotic features F31.63 Unable to control anger R45.4 Oppositional defiant disorder with chronic irritability and anger F91.3; R45.4 ADHD (attention deficit hyperactivity disorder), combined type F90.2
[2023-10-02 19:42] VITALS: BP 160/87; PULSE 90; RESP 18; TEMP 36.7; O2SAT 95
[2023-10-02] MEDS: trazodone 50 mg Tablet PO (20:50)
[2023-10-02] MEDS: divalproex ER 500 mg Tablet (24H) 1000 MG PO (20:51)
[2023-10-02] MEDS: OLANZapine 5 mg ODT PO (21:27)
[2023-10-03 06:00] VITALS: BP 128/68; PULSE 108; RESP 18; TEMP 36.4; O2SAT 99
[2023-10-03] MEDS: escitalopram 10 mg Tablet PO (08:46)
[2023-10-03] MEDS: acetaminophen 325 mg Tablet 650 MG PO (08:46)
[2023-10-03] MEDS: OLANZapine 5 mg ODT PO (10:29)
[2023-10-03 12:18] VITALS: BP 128/68; PULSE 108; RESP 18; TEMP 36.4; O2SAT 99
--- NOTE | 2023-10-03 12:22 | PC.NURSE ---
PT RECEIVED THE FOLLOWING PRN MEDICATIONS: 650MH TYLENOL PO FOR TOOTH PAIN RATED A 9/10 ON A 0-10 SCALE WHERE 0 IS NONE AND 10 IS THE WORST POSSIBLE. UPON RE-EVALUATION PT STATED THE PAIN HAD RELIEVED AND REDUCED TO A 3/10 ON THE SAME SCALE PREVIOUS. 5MG ZYPREXA SUBLINGUAL FOR ANXIETY/AGITATION RATING IT A 8/10 ON A 0-10 SCALE WHERE 0 IS NONE AND 10 IS THE WORST POSSIBLE. UPON RE-ASSESSMENT PT IS RESTING WITH HIS EYES CLOSED IN BED. PT RESPIRATIONS ARE EVEN AND NON-LABORED.
[2023-10-03 14:00] VITALS: BP 133/66; PULSE 105; RESP 18; TEMP 36.6; O2SAT 95
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
== END 2023-10-03 15:03 | disposition home or self-care (01) | DRG 885 ==
LOC: ER 04:30 → NP 07:29
PROVIDERS: Admitting Provider Psychiatry & Neurology Psychiatry; Emergency Provider Emergency Medicine; PCP Nurse Practitioner Family; Visit Provider Psychiatry & Neurology Psychiatry
DX: F31.63 Bipolar disorder, current episode mixed, severe, without psychotic features (principal); R45.4 Irritability and anger; F91.3 Oppositional defiant disorder; F90.2 Attention-deficit hyperactivity disorder, combined type; R45.850 Homicidal ideations
CPT/HCPCS: 36415; 36416; 80053; 80306; 80307; 81003; 81015; 82962; 85025; 93005; 97150; 97165; 99285

== ENCOUNTER 2023-10-28 22:30 | Inpatient (IN) | payer MEDICAID, SELFPAY ==
[2023-10-28 22:32] VITALS: BP 131/79; PULSE 119; RESP 16; TEMP 36.8; O2SAT 99; BMI 39.9
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
--- NOTE | 2023-10-28 22:46 | ED.C_ITS ---
HPI - Psych 2 General: Chief Complaint: Psychiatric Symptoms Stated Complaint: SI Time Seen by Provider: 10/28/23 22:33 History of Present Illness: 18-year-old male with a history of anger control issues, bipolar disorder and mild intellectual disability who presents emergency room by ambulance after he had an episode of anger and punched a wall and now feels suicidal. He says he has been taking his medications as instructed. He has no specific plan but says he would make it look like an accident. Related Data Previous Rx's Medication Instructions Recorded divalproex 500 mg tablet,extended 500 mg PO BID #60 tabs 10/03/23 release 24 hr escitalopram oxalate 10 mg tablet 10 mg PO DAILY 30 days #30 tabs 10/11/23 oxcarbazepine 150 mg tablet 150 mg PO DAILY #30 tabs 10/11/23 trazodone 50 mg tablet 50 mg PO BEDTIME PRN Sleep 30 days 10/11/23 #30 tabs prednisone 20 mg tablet 60 mg (3 x 20 mg) PO DAILY 6 days 10/23/23 #12 tabs Allergies Allergy/AdvReac Type Severity Reaction Status Date / Time hydroxyzine Allergy Severe Dizzy, Verified 10/23/23 12:06 seeing tri-vision, anaphylaxis. menthol [From BenGay] Allergy Severe Throat Verified 10/23/23 12:06 swelleed methyl salicylate Allergy Severe Throat Verified 10/23/23 12:06 [From BenGay] swelleed amoxicillin Allergy Intermediate ALGY-Rash Verified 10/23/23 12:06 cefdinir [From Omnicef] Allergy Unknown Unknown Verified 10/23/23 12:06 Review of Systems 2 Narrative: Constitutional symptoms: Negative except as documented in HPI. Skin symptoms: Negative except as documented in HPI. Eye symptoms: Negative except as documented in HPI. ENMT symptoms: Negative except as documented in HPI. Respiratory symptoms: Negative except as documented in HPI. Cardiovascular symptoms: Negative except as documented in HPI. Gastrointestinal symptoms: Negative except as documented in HPI. Genitourinary symptoms: Negative except as documented in HPI. Musculoskeletal symptoms: Negative except as documented in HPI. Neurologic symptoms: Negative except as documented in HPI. Psychiatric symptoms: Negative except as documented in HPI. Endocrine symptoms: Negative except as documented in HPI. PFSH ED 2 PFSH: Medical History Bipolar disorder, curr episode mixed, severe, w/o psychotic features Psychiatric care No pertinent past medical history Surgical History No history of previous surgery Social History Smoking and tobacco/nicotine status: never used tobacco/nicotine Second hand smoke exposure: No Alcohol intake: former Substance/Drug Use: former Current gender identity: Male Physical Exam 2 Narrative: EXAM NARRATIVE: General: Alert, no acute distress. Skin: Warm, dry. Head: Normocephalic, atraumatic. Neck: Supple, trachea midline. Eye: Extraocular movements are intact. Ears, nose, mouth and throat: mucosa moist. Cardiovascular: Regular, Normal peripheral perfusion. Respiratory: Lungs are clear to auscultation, respirations are non-labored, breath sounds are equal, Symmetrical chest wall expansion. Gastrointestinal: Soft, Nontender, Non distended Musculoskeletal: Normal ROM, no deformity. Tenderness of the right hand but no obvious deformities or redness. Neurological: Alert and oriented, No focal neurological deficit observed. Psychiatric: Cooperative, patient endorses suicidal thoughts. Course 2 Vital Signs: Vital signs: Vital Signs Temperature 98.3 F 10/28/23 22:32 Pulse Rate 119 H 10/28/23 22:32 Respiratory Rate 16 10/28/23 22:32 Blood Pressure 131/79 10/28/23 22:32 Pulse Oximetry 99 10/28/23 22:32 Oxygen Delivery Me thod Room Air 10/28/23 22:32 MDM - Psych Medical Decision Making Differential diagnosis: Patient with reported depression and suicidal ideation. concerns for infection, alcohol intoxication, cardiac issues or other medical problems prior to psychiatric admission. Workup: labwork, ekg ordered to evaluate the pathologies and to clear the patient medically prior to psychiatric admission EKG: Time 2302. Rate 64. Normal sinus rhythm, No ST-T changes, no ectopy, normal SD & QRS intervals, This was reviewed and interpreted by myself the ER physician at 2305 X-ray of the right hand: No obvious fractures or dislocations. Films were interpreted by myself the emergency room provider and pending final radiology review. Lab Review: Laboratory results were reviewed and interpreted by myself the emergency room physician. Lab review: - Medically cleared. - EKG shows no ischemic changes. - Blood alcohol level is negative, -Tylenol and salicylate levels are negative. - Drug screen is negative - No signs of infection, urinalysis clear and white count is not elevated - No anemia. - BUN and creatinine are within normal limits. Consultation: I spoke with Dr. Short who is on-call for psychiatry who agrees to admission. Assessment and plan: Suicidal ideation Anger issues Hand injury ?96-hour hold was placed per protocol -Admission to neuropsychiatric unit for continued evaluation and treatment. - All lab work was reviewed and interpreted personally by myself, the ER physician - Evaluation and treatment of this problem were appropriate in the emergency setting Lab Data 10/28/23 22:43 10/28/23 22:43 Laboratory Results WBC 15.93 10^3/uL (4.5-13.0) H 10/28/23 22:43 RBC 5.05 10^6/uL (3.85-5.65) 10/28/23 22:43 Hgb 15.30 g/dL (13.2-15.6) 10/28/23 22:43 Hct 46.0 % (37-53) 10/28/23 22:43 MCV 91.1 fl (82-101) 10/28/23 22:43 MCH 30.3 pg (27-33) 10/28/23 22:43 MCHC 33.3 g/dL (30-55) 10/28/23 22:43 RDW 12.9 % (12.1-15.1) 10/28/23 22:43 Plt Count 340 10^3/cmm (157-399) 10/28/23 22:43 MPV 10.4 fL (7.4-10.4) 10/28/23 22:43 Neut % (Auto) 74.4 % 10/28/23 22:43 Lymph % (Auto) 18.1 % 10/28/23 22:43 [place] % (Auto) 5.3 % 10/28/23 22:43 Eos % (Auto) 0.8 % 10/28/23 22:43 Baso % (Auto) 1.0 % 10/28/23 22:43 Neut # (Auto) 11.84 10^3/uL (1.8-8.0) H 10/28/23 22:43 Lymph # (Auto) 2.9 10^3/uL (1.5-6.5) 10/28/23 22:43 Castro # (Auto) 0.8 10^3/uL (0.2-0.9) 10/28/23 22:43 Eos # (Auto) 0.1 10^3/uL (0.0-0.8) 10/28/23 22:43 Baso # (Auto) 0.2 10^3/uL (0.0-0.1) H 10/28/23 22:43 Nucleated RBC % (auto) 0 % 10/28/23 22:43 Nucleated RBCs # 0.0 /100WBC 10/28/23 22:43 Sodium 137 mmol/L (136-145) 10/28/23 22:43 Potassium 4.5 mmol/L (3.5-5.1) 10/28/23 22:43 Chloride 105 mmol/L (98-107) 10/28/23 22:43 Carbon Dioxide 23 mmol/L (22-29) 10/28/23 22:43 Anion Gap 13.5 (5-19) 10/28/23 22:43 BUN 14 mg/dL (6-20) 10/28/23 22:43 Creatinine 0.7 mg/dL (0.7-1.2) 10/28/23 22:43 GFR Calculation 143.8 mL/min (90-130) H 10/28/23 22:43 Glucose 107 mg/dL (65-115) 10/28/23 22:43 Calculated Osmolality 285 mOsm/kg (285-295) 10/28/23 22:43 Calcium 8.5 mg/dL (8.5-10.5) 10/28/23 22:43 Total Bilirubin 0.2 mg/dL (0.15-1.2) 10/28/23 22:43 AST 13 U/L (0-40) 10/28/23 22:43 ALT 15 U/L (0-41) 10/28/23 22:43 Alkaline Phosphatase 79 U/L (40-130) 10/28/23 22:43 Total Protein 7.2 g/dL (6.6-8.7) 10/28/23 22:43 Albumin 4.0 g/dL (3.5-5.2) 10/28/23 22:43 Globulin 3.2 g/dL (1.3-4.6) 10/28/23 22:43 TSH 3.21 uIU/mL (0.27-4.20) 10/28/23 22:43 Urine Color Yellow (Yellow) 10/28/23 22:43 Urine Appearance Clear (CLEAR) 10/28/23 22:43 Urine pH 6.5 (5-7) 10/28/23 22:43 Ur Specific [place] 1.028 (1.005-1.030) 10/28/23 22:43 Urine Protein Negative (Negative) 10/28/23 22:43 Urine Glucose (UA) Negative (Normal) 10/28/23 22:43 Urine Ketones Trace (Negative) 10/28/23 22:43 Urine Blood Negative (Negative) 10/28/23 22:43 Urine Nitrate Negative (Negative) 10/28/23 22:43 Urine Bilirubin Negative (Negative) 10/28/23 22:43 Urine Urobilinogen 1.0 mg/dL (Negative) 10/28/23 22:43 Ur Leukocyte Esterase Negative (Negative) 10/28/23 22:43 Urine RBC 0-2 /hpf (0-2) 10/28/23 22:43 Urine WBC 0-5 /hpf (0-5) 10/28/23 22:43 Ur Squamous Epith Cells 0-5 /hpf (0-5) 10/28/23 22:43 Amorphous Sediment Not Reportable 10/28/23 22:43 Urine Bacteria None seen /hpf (NONE) 10/28/23 22:43 Hyaline Casts 0-4 /lpf H 10/28/23 22:43 Salicylates < 0.3 mg/dL (3-10) L 10/28/23 22:43 Urine Opiates Screen Negative ng/mL (Negative) 10/28/23 22:43 Acetaminophen < 5.0 ug/mL (10-30) L 10/28/23 22:43 Ur Barbiturates Screen Negative ng/mL (Negative) 10/28/23 22:43 Ur Phencyclidine Scrn Negative ng/mL (Negative) 10/28/23 22:43 Ur Amphetamines Screen Negative ng/mL (Negative) 10/28/23 22:43 U Benzodiazepines Scrn Negative ng/mL (Negative) 10/28/23 22:43 Urine Cocaine Screen Negative ng/mL (Negative) 10/28/23 22:43 U Marijuana (THC) Screen Negative ng/mL (Negative) 10/28/23 22:43 Ethyl Alcohol < 10 mg/dL (0-10) 10/28/23 22:43 XR interpretation done by ED provider, pending radiology final review Discharge Plan Discharge Patient Disposition: Admitted As Inpatient Clinical Impression: Suicidal ideation, Difficulty controlling anger Condition: Stable Coding Level of Care Code ED 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
[2023-10-28 22:49] LABS: Basophils # 0.2 10^3/uL (0.0-0.1); Eosinophils # 0.1 10^3/uL (0.0-0.8); Eosinophils % 0.8 %; Lymphocytes # 2.9 10^3/uL (1.5-6.5); Lymphocytes % 18.1 %; Mean Corpuscular HGB Conc 33.3 g/dL (30-55); Mean Corpuscular Hemoglobin 30.3 pg (27-33); Mean Corpuscular Volume 91.1 fl (82-101); Mean Platelet Volume 10.4 fL (7.4-10.4); Monocytes # 0.8 10^3/uL (0.2-0.9); Monocytes % 5.3 %; Neutrophils # 11.84 10^3/uL (1.8-8.0); Neutrophils % 74.4 %; Nucleated Red Blood Cells % 0 %; Platelet Count 340 10^3/cmm (157-399); Red Blood Count 5.05 10^6/uL (3.85-5.65); Red Cell Distribution Width 12.9 % (12.1-15.1); White Blood Count 15.93 10^3/uL (4.5-13.0)
[2023-10-28 22:51] LABS: Bilirubin Urine Negative (Negative); Blood Urine Negative (Negative); Glucose Urine UA Negative (Normal); Ketones Urine Trace (Negative); Leukocyte Esterase Urine Negative (Negative); Nitrate Urine Negative (Negative); Protein Urine Negative (Negative); Specific Gravity, Urine 1.028 (1.005-1.030); Urine Appearance Clear (CLEAR); Urine Color Yellow (Yellow); pH Urine 6.5 (5-7)
[2023-10-28 22:56] LABS: Bacteria Urine None Seen /hpf; Hyaline Casts Urine 0-4 /lpf; RBC Urine 0-2 /hpf (0-2); Squamous Epithelial Cell Urine 0-5 /hpf (0-5); WBC Urine 0-5 /hpf (0-5)
[2023-10-28 22:59] LABS: Amphetamines Screen Urine Negative (Negative); Barbiturates Screen Urine Negative (Negative); Benzodiazepines Screen Urine Negative (Negative); Cocaine Screen Urine Negative (Negative); Opiate Screen Urine Negative (Negative); PCP Screen Urine Negative (Negative); THC Screen Urine Negative (Negative)
--- NOTE | 2023-10-28 23:02 | ECG_ITS ---
[facility] Test Date: 2023-10-28 Pat Name: John Hathaway Department: Room: Gender: Male Conference Manager: : 2005 Requested By: Skyla Adame Order Number: [id number] Esquivel MD: Timothy Flores M.D. Measurements Intervals [place] Rate: 64 P: 44 MD: 144 QRS: 49 QRSD: 106 T: 43 QT: 371 QTc: 384 Interpretive Statements SINUS RHYTHM Compared to ECG 09/30/2023 23:48:19 T-wave abnormality no longer present Electronically Signed On 10-29-2023 7:49:40 CDT by Timothy Flores M.D. [email or web address]
[2023-10-28 23:16] LABS: Acetaminophen < 5.0 ug/mL (10-30); Alanine Aminotransferase 15 U/L (0-41); Alcohol Level < 10 mg/dL (0-10); Alkaline Phosphatase 79 U/L (40-130); Anion Gap 13.5 (5-19); Aspartate Amino Transferase 13 U/L (0-40); Blood Urea Nitrogen 14 mg/dL (6-20); Calcium 8.5 mg/dL (8.5-10.5); Carbon Dioxide 23 mmol/L (22-29); Chloride 105 mmol/L (98-107); Creatinine Clr Calc Pharmacy 237.8629; Globulin 3.2 g/dL (1.3-4.6); Glomerular Filtration Rate 143.8 mL/min (90-130); Glucose 107 mg/dL (65-115); Osmolality Calculated 285 mOsm/kg (285-295); Potassium 4.5 mmol/L (3.5-5.1); Salicylate < 0.3 mg/dL (3-10); Sodium 137 mmol/L (136-145); Thyroid Stimulating Hormone 3.21 uIU/mL (0.27-4.20); Total Bilirubin 0.2 mg/dL (0.15-1.2); Total Protein 7.2 g/dL (6.6-8.7)
--- NOTE | 2023-10-28 23:36 | PC.NURSE ---
Patient given sandwich and sprite per his request. Denies any other needs at this time. Pt reports that he usually sleeps with a fan and cooling blanket and does not want a cover at this time. Calm, cooperative in room at this time. Sitter at doorway.
--- NOTE | 2023-10-28 23:58 | PC.NURSE ---
96 HH Pt served with copy of 96 HH by this RN and Security. Pt alert and oriented, calm and cooperative. Pt stated that he was familiar with 96 Hour Holds and has been previously been admitted to the NPU unit. Pt had no questions at this time.
[2023-10-29 00:03] VITALS: BP 127/71; PULSE 98; RESP 16; O2SAT 99
[2023-10-29 00:12] VITALS: BP 140/85; PULSE 73; RESP 18; TEMP 36.7; O2SAT 97
[2023-10-29] MEDS: trazodone 50 mg Tablet PO ×2 (00:41→20:08)
[2023-10-29 06:00] VITALS: BP 127/79; PULSE 80; RESP 18; TEMP 36.9; O2SAT 98
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
[2023-10-29 14:00] VITALS: BP 121/77; PULSE 99; RESP 16; TEMP 36.6; O2SAT 97
[2023-10-29 19:07] VITALS: BP 138/84; PULSE 74; RESP 16; TEMP 36.4; O2SAT 100
[2023-10-29] MEDS: acetaminophen 325 mg Tablet 650 MG PO (20:06)
[2023-10-29] MEDS: escitalopram 10 mg Tablet PO (20:07)
[2023-10-29] MEDS: OXcarbazepine 300 mg Tablet 150 MG PO (20:07)
[2023-10-30 06:00] VITALS: BP 123/82; PULSE 98; RESP 18; TEMP 36.9; O2SAT 99
[2023-10-30] MEDS: acetaminophen 325 mg Tablet 650 MG PO (08:22)
[2023-10-30 14:00] VITALS: BP 126/74; PULSE 108; RESP 16; TEMP 36.6; O2SAT 97
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
[2023-10-30] MEDS: OXcarbazepine 300 mg Tablet 150 MG PO (20:18)
[2023-10-30] MEDS: escitalopram 10 mg Tablet PO (20:18)
[2023-10-30] MEDS: trazodone 50 mg Tablet PO (20:18)
[2023-10-30 20:25] VITALS: BP 121/74; PULSE 91; RESP 16; TEMP 36.5; O2SAT 97
[2023-10-31] MEDS: acetaminophen 325 mg Tablet 650 MG PO (05:04)
[2023-10-31 06:00] VITALS: BP 128/78; PULSE 82; RESP 16; TEMP 36.4; O2SAT 97
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
[2023-10-31 14:00] VITALS: BP 144/84; PULSE 95; RESP 18; TEMP 36.6; O2SAT 97
[2023-10-31 19:40] VITALS: BP 119/71; PULSE 91; RESP 18; TEMP 36.9; O2SAT 97
[2023-10-31] MEDS: OXcarbazepine 300 mg Tablet 150 MG PO (20:20)
[2023-10-31] MEDS: escitalopram 10 mg Tablet PO (20:20)
[2023-10-31] MEDS: trazodone 50 mg Tablet PO (23:16)
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
[2023-11-01 06:00] VITALS: BP 119/81; PULSE 88; RESP 17; TEMP 36.3; O2SAT 97
--- NOTE | 2023-11-01 12:45 | P.NPUDS_ITS ---
Diagnoses at Discharge Discharge Diagnosis (1) Bipolar disorder, curr episode mixed, severe, w/o psychotic features: Status: Inactive (2) Unable to control anger: Status: Resolved (3) Oppositional defiant disorder with chronic irritability and anger: Status: Resolved (4) ADHD (attention deficit hyperactivity disorder), combined type: Status: Acute Reason for Visit Reason for Visit: SI Involuntary Hold Information 96 Hour Hold: 96 Hour Involuntary Admission: No 96 Hour Hold Ending Date: 11/01/23 96 Hour Hold Ending Time: 22:50 Mental Status Exam MSE Comments: This is an obese white male in hospital scrubs with adequate grooming and limited eye contact. No abnormal movements except for psychomotor retardation. Mostly cooperative with exam in mild distress. Speech was limited but mostly normal rate and volume. His mood was described as tired. His affect was congruent. Thought process was linear. Thought content: Patient denied suicidal but endorsed homicidal ideations, there were no delusions reported or noted, he did not report auditory or visual hallucinations and did not appear to be attending to internal stimuli. Attention and concentration were limited and memory appeared reliable, but none were formally tested. He was alert and oriented times person and place. Insight, judgment and impulse control were impaired. Intellectual ability appears limited. Discharge Data Studies Completed and Pending: Completed Studies During Hospitalization Category Date Time Status XR hand RT min 3V * [id number] Stat Exams 10/28/23 22:36 Completed Radiology Impressions Hand X-Ray 10/28/23 22:36 IMPRESSION: No acute findings. Laboratory Results WBC 15.93 10^3/uL (4. 5-13.0) H 10/28/23 22:43 RBC 5.05 10^6/uL (3.8 5-5.65) 10/28/23 22:43 Hgb 15.30 g/dL (13.2- 15.6) 10/28/23 22:43 Hct 46.0 % (37-53) 10/28/23 22:43 MCV 91.1 fl (82-101) 10/28/23 22:43 MCH 30.3 pg (27-33) 10/28/23 22:43 MCHC 33.3 g/dL (30-55) 10/28/23 22:43 RDW 12.9 % (12.1-15.1 ) 10/28/23 22:43 Plt Count 340 10^3/cmm (157 -399) 10/28/23 22:43 MPV 10.4 fL (7.4-10.4 ) 10/28/23 22:43 Neut % (Auto) 74.4 % 10/28/23 22:43 Lymph % (Auto) 18.1 % 10/28/23 22:43 [place] % (Auto) 5.3 % 10/28/23 22:43 Eos % (Auto) 0.8 % 10/28/23 22:43 Baso % (Auto) 1.0 % 10/28/23 22:43 Neut # (Auto) 11.84 10^3/uL (1. 8-8.0) H 10/28/23 22:43 Lymph # (Auto) 2.9 10^3/uL (1.5- 6.5) 10/28/23 22:43 [place] # (Auto) 0.8 10^3/uL (0.2- 0.9) 10/28/23 22:43 Eos # (Auto) 0.1 10^3/uL (0.0- 0.8) 10/28/23 22:43 Baso # (Auto) 0.2 10^3/uL (0.0- 0.1) H 10/28/23 22:43 Nucleated RBC % (a uto) 0 % 10/28/23 22:43 Nucleated RBCs # 0.0 /100WBC 10/28/23 22:43 Sodium 137 mmol/L (136-1 45) 10/28/23 22:43 Potassium 4.5 mmol/L (3.5-5 .1) 10/28/23 22:43 Chloride 105 mmol/L (98-10 7) 10/28/23 22:43 Carbon Dioxide 23 mmol/L (22-29) 10/28/23 22:43 Anion Gap 13.5 (5-19) 10/28/23 22:43 BUN 14 mg/dL (6-20) 10/28/23 22:43 Creatinine 0.7 mg/dL (0.7-1. 2) 10/28/23 22:43 GFR Calculation 143.8 mL/min (90- 130) H 10/28/23 22:43 Glucose 107 mg/dL (65-115 ) 10/28/23 22:43 Calculated Osmolal ity 285 mOsm/kg (285- 295) 10/28/23 22:43 Calcium 8.5 mg/dL (8.5-10 .5) 10/28/23 22:43 Total Bilirubin 0.2 mg/dL (0.15-1 .2) 10/28/23 22:43 AST 13 U/L (0-40) 10/28/23 22:43 ALT 15 U/L (0-41) 10/28/23 22:43 Alkaline Phosphata se 79 U/L (40-130) 10/28/23 22:43 Total Protein 7.2 g/dL (6.6-8.7 ) 10/28/23 22:43 Albumin 4.0 g/dL (3.5-5.2 ) 10/28/23 22:43 Globulin 3.2 g/dL (1.3-4.6 ) 10/28/23 22:43 TSH 3.21 uIU/mL (0.27 -4.20) 10/28/23 22:43 Urine Color Yellow (Yellow) 10/28/23 22:43 Urine Appearance Clear (CLEAR) 10/28/23 22:43 Urine pH 6.5 (5-7) 10/28/23 22:43 Ur Specific Gravit y 1.028 (1.005-1.0 30) 10/28/23 22:43 Urine Protein Negative (Negati ve) 10/28/23 22:43 Urine Glucose (UA) Negative (Normal ) 10/28/23 22:43 Urine Ketones Trace (Negative) 10/28/23 22:43 Urine Blood Negative (Negati ve) 10/28/23 22:43 Urine Nitrate Negative (Negati ve) 10/28/23 22:43 Urine Bilirubin Negative (Negati ve) 10/28/23 22:43 Urine Urobilinogen 1.0 mg/dL (Negati ve) 10/28/23 22:43 Ur Leukocyte Cassy ase Negative (Negati ve) 10/28/23 22:43 Urine RBC 0-2 /hpf (0-2) 10/28/23 22:43 Urine WBC 0-5 /hpf (0-5) 10/28/23 22:43 Ur Squamous Epith Cells 0-5 /hpf (0-5) 10/28/23 22:43 Amorphous Sediment Not Reportable 10/28/23 22:43 Urine Bacteria None seen /hpf (N ONE) 10/28/23 22:43 Hyaline Casts 0-4 /lpf H 10/28/23 22:43 Salicylates < 0.3 mg/dL (3-10 ) L 10/28/23 22:43 Urine Opiates Scre en Negative ng/mL (N egative) 10/28/23 22:43 Acetaminophen < 5.0 ug/mL (10-3 0) L 10/28/23 22:43 Ur Barbiturates Sc reen Negative ng/mL (N egative) 10/28/23 22:43 Ur Phencyclidine S crn Negative ng/mL (N egative) 10/28/23 22:43 Ur Amphetamines Sc reen Negative ng/mL (N egative) 10/28/23 22:43 U Benzodiazepines Scrn Negative ng/mL (N egative) 10/28/23 22:43 Urine Cocaine Scre en Negative ng/mL (N egative) 10/28/23 22:43 U Marijuana (THC) Screen Negative ng/mL (N egative) 10/28/23 22:43 Ethyl Alcohol < 10 mg/dL (0-10) 10/28/23 22:43 Vitals: Last Vital Signs Temp 97.4 F L 11/01/23 06:00 Pulse 88 11/01/23 06:00 Resp 17 11/01/23 06:00 BP 119/81 11/01/23 06:00 Pulse Ox 97 11/01/23 06:00 O2 Del Method Room Air 10/31/23 06:00 Discharge Plan Discharge Patient Disposition: Home Condition: Stable Prescriptions: Continued escitalopram oxalate 10 mg tablet 10 mg PO DAILY 30 Days Qty: 30 3RF oxcarbazepine 150 mg tablet 150 mg PO DAILY Qty: 30 3RF trazodone 50 mg tablet 50 mg PO BEDTIME PRN (Reason: Sleep) 30 Days Qty: 30 3RF Discharge Orders: Discharge Order (Routine); Ordered 11/01/23 Ordered By: Torsten Short Referrals: [facility] L[facility] [Other] Kate Gates MD [Physician] - Jose Murry FNP [Primary Care Provider] - Discharge Diet: Regular Discharge Activity: Resume usual activity Patient Instructions: Opioid Safety Discharge Attestations NPU Time Spent in Discharge Care*: less than 30 min Specific Discharge Activities: Specific discharge activities: educating patient, discussing with returned case inspector/social workers/dc planners, documenting/other paperwork and evaluating patient/reviewing data Coding Level of Care Code Acute Code for [facility] Fwd Diagnoses Bipolar disorder, curr episode mixed, severe, w/o psychotic features F31.63 Unable to control anger R45.4 Oppositional defiant disorder with chronic irritability and anger F91.3; R45.4 ADHD (attention deficit hyperactivity disorder), combined type F90.2
[2023-11-01 12:57] VITALS: BP 119/81; PULSE 88; RESP 17; TEMP 36.3; O2SAT 97
[2023-11-01 14:00] VITALS: BP 129/80; PULSE 87; RESP 16; TEMP 36.8; O2SAT 96
== END 2023-11-01 15:00 | disposition home or self-care (01) | DRG 885 ==
LOC: ER 22:53 → NP 10-29 00:02
PROVIDERS: Admitting Provider Psychiatry & Neurology Psychiatry; Emergency Provider Emergency Medicine; PCP Nurse Practitioner Family; Visit Provider Psychiatry & Neurology Psychiatry
DX: F31.63 Bipolar disorder, current episode mixed, severe, without psychotic features (principal); F91.3 Oppositional defiant disorder; F90.2 Attention-deficit hyperactivity disorder, combined type; R45.850 Homicidal ideations; E66.9 Obesity, unspecified; Z68.39 Body mass index [BMI] 39.0-39.9, adult
CPT/HCPCS: 73130; 80053; 80306; 80307; 81001; 84443; 85025; 93005; 97150; 97165; 99285

== ENCOUNTER 2023-11-27 00:23 | Emergency (ER) | payer MEDICAID, SELFPAY ==
[2023-11-27 00:25] VITALS: BP 125/91; PULSE 77; RESP 18; TEMP 36.9; O2SAT 96; BMI 40.6
--- NOTE | 2023-11-27 00:37 | XRR_ITS ---
PROCEDURE INFORMATION: Exam: XR Chest Exam date and time: 11/27/2023 12:58 AM Age: 18 years old Clinical indication: Dyspnea; Additional info: Dyspnea chest pain TECHNIQUE: Imaging protocol: Radiologic exam of the chest. Views: 1 view. COMPARISON: CR XR chest 1V portable [id number] 07/12/2019 4:31 PM FINDINGS: Lungs: Unremarkable. No consolidation. Pleural spaces: Unremarkable. No pleural effusion. No pneumothorax. Heart/Mediastinum: Unremarkable. No cardiomegaly. Bones/joints: Unremarkable. XR/XR chest 1V portable [id number] IMPRESSION: No acute findings.
--- NOTE | 2023-11-27 00:43 | W.ED.DIZZY ---
HPI - Dizziness General: Chief Complaint: Dizziness Stated Complaint: sob, light headed, diff breathing Time Seen by Provider: 11/27/23 00:37 History of Present Illness: HPI Narrative: Patient presents from home by [facility] with complaints of dizziness chest pressure and shortness of breath. Patient states that he felt he almost passed out. Patient was not doing anything when this happened it lasted for about 30 minutes and patient said it went away on its own. Patient is never had this before. Patient does have a history of asthma. Related Data Previous Rx's Medication Instructions Recorded escitalopram oxalate 10 mg tablet 10 mg PO DAILY 30 days #30 tabs 10/11/23 oxcarbazepine 150 mg tablet 150 mg PO DAILY #30 tabs 10/11/23 trazodone 50 mg tablet 50 mg PO BEDTIME PRN Sleep 30 days 10/11/23 #30 tabs Allergies Allergy/AdvReac Type Severity Reaction Status Date / Time hydroxyzine Allergy Severe Dizzy, Verified 11/27/23 00:31 seeing tri-vision, anaphylaxis. menthol [From BenGay] Allergy Severe Throat Verified 11/27/23 00:31 swelleed methyl salicylate Allergy Severe Throat Verified 11/27/23 00:31 [From BenGay] swelleed amoxicillin Allergy Intermediate ALGY-Rash Verified 11/27/23 00:31 cefdinir [From Omnicef] Allergy Unknown Unknown Verified 11/27/23 00:31 Review of Systems General: Reports: 10 or more systems reviewed and unremarkable except in HPI and below PFSH ED PFSH: Medical History Bipolar disorder, curr episode mixed, severe, w/o psychotic features Psychiatric care No pertinent past medical history Surgical History No history of previous surgery Social History Smoking and tobacco/nicotine status: never used tobacco/nicotine Second hand smoke exposure: No Alcohol intake: former Substance/Drug Use: former Current gender identity: Male Physical Exam Const: COMMON NORMALS: no acute distress, average body habitus, patient oriented x3, no limitations, healthy appearing, alert and well nourished HENMT: COMMON NORMALS: normocephalic, atraumatic, hearing grossly normal bilaterally, external ears normal, Normal external nose present and moist oral mucous membranes HEAD & SCALP: normocephalic and atraumatic NOSE: Normal external nose present EXTERNAL EAR: Yes external ears normal Neck/C-Spine: COMMON NORMALS: no JVD Chest: COMMONS NORMALS: normal inspection of the chest and normal palpation of entire chest wall Resp: COMMON NORMALS: normal respiratory effort, No retractions, No use of accessory muscles and clear to auscultation bilaterally AUSCULTATION: clear to auscultation bilaterally Cardio: COMMON NORMALS: no JVD, regular rate, regular rhythm, S1 normal heart sound present, S2 normal heart sound present, No gallops present (Cardio), No clicks present (Cardio), No murmurs present (Cardio) and No rub (Cardio) RATE: regular rate RHYTHM: regular rhythm HEART SOUNDS: S1 normal heart sound present and S2 normal heart sound present GI: COMMON NORMALS: Normal to inspection, nondistended, normoactive bowel sounds present, Soft to palpation, non-tender, No hepatosplenomegaly present and no masses PALPATION: Yes Soft to palpation and Yes No hepatosplenomegaly present Neuro: COMMON NORMALS: patient oriented x3 SENSORIUM/ORIENTATION: Yes alert Course Vital Signs: Vital signs: Vital Signs Temperature 98.4 F 11/27/23 00:25 Pulse Rate 67 11/27/23 01:54 Respiratory Rate 18 11/27/23 01:54 Blood Pressure 154/89 11/27/23 01:54 Pulse Oximetry 96 11/27/23 01:54 Oxygen Delivery Me thod Room Air 11/27/23 00:59 MDM - Dizziness Medical Decision Making Patient lab work included CBC CMP cardiac troponin, chest x-ray, all of which was essentially benign. Patient's vital signs remained stable during his time here patient not have any of his symptomatology. Patient be discharged home to follow-up with his PCP. Medical Records I reviewed the patient's medical records. Lab Data I reviewed the patient's lab results. 11/27/23 00:45 11/27/23 00:45 Radiology Impressions Chest X-Ray 11/27/23 00:37 IMPRESSION: No acute findings. Laboratory Results WBC 10.90 10^3/uL (4.5-13.0) 11/27/23 00:45 RBC 5.13 10^6/uL (3.85-5.65) 11/27/23 00:45 Hgb 15.50 g/dL (13.2-15.6) 11/27/23 00:45 Hct 47.5 % (37-53) 11/27/23 00:45 MCV 92.6 fl (82-101) 11/27/23 00:45 MCH 30.2 pg (27-33) 11/27/23 00:45 MCHC 32.6 g/dL (30-55) 11/27/23 00:45 RDW 12.6 % (12.1-15.1) 11/27/23 00:45 Plt Count 301 10^3/cmm (157-399) 11/27/23 00:45 MPV 10.7 fL (7.4-10.4) H 11/27/23 00:45 Neut % (Auto) 61.2 % 11/27/23 00:45 Lymph % (Auto) 30.1 % 11/27/23 00:45 [place] % (Auto) 6.6 % 11/27/23 00:45 Eos % (Auto) 0.7 % 11/27/23 00:45 Baso % (Auto) 1.2 % 11/27/23 00:45 Neut # (Auto) 6.67 10^3/uL (1.8-8.0) 11/27/23 00:45 Lymph # (Auto) 3.3 10^3/uL (1.5-6.5) 11/27/23 00:45 [place] # (Auto) 0.7 10^3/uL (0.2-0.9) 11/27/23 00:45 Eos # (Auto) 0.1 10^3/uL (0.0-0.8) 11/27/23 00:45 Baso # (Auto) 0.1 10^3/uL (0.0-0.1) 11/27/23 00:45 Nucleated RBC % (auto) 0 % 11/27/23 00:45 Nucleated RBCs # 0.0 /100WBC 11/27/23 00:45 Sodium 140 mmol/L (136-145) 11/27/23 00:45 Potassium 4.4 mmol/L (3.5-5.1) 11/27/23 00:45 Chloride 108 mmol/L (98-107) H 11/27/23 00:45 Carbon Dioxide 21 mmol/L (22-29) L 11/27/23 00:45 Anion Gap 15.4 (5-19) 11/27/23 00:45 BUN 14 mg/dL (6-20) 11/27/23 00:45 Creatinine 0.7 mg/dL (0.7-1.2) 11/27/23 00:45 GFR Calculation 143.8 mL/min (90-130) H 11/27/23 00:45 Glucose 105 mg/dL (65-115) 11/27/23 00:45 Calculated Osmolality 291 mOsm/kg (285-295) 11/27/23 00:45 Calcium 8.9 mg/dL (8.5-10.5) 11/27/23 00:45 Total Bilirubin 0.2 mg/dL (0.15-1.2) 11/27/23 00:45 AST 17 U/L (0-40) 11/27/23 00:45 ALT 19 U/L (0-41) 11/27/23 00:45 Alkaline Phosphatase 72 U/L (40-130) 11/27/23 00:45 Troponin T Baseline < 6 ng/L (0-15) 11/27/23 00:45 Total Protein 7.1 g/dL (6.6-8.7) 11/27/23 00:45 Albumin 4.5 g/dL (3.5-5.2) 11/27/23 00:45 Globulin 2.6 g/dL (1.3-4.6) 11/27/23 00:45 All radiology interpretation(s) finalized by discharge Discharge Plan Discharge Patient Disposition: Home Clinical Impression: Shortness of breath Chest pain Qualifiers: Chest pain type: unspecified Qualified Code(s): R07.9 - Chest pain, unspecified Condition: Stable Prescriptions: No Action escitalopram oxalate 10 mg tablet 10 mg PO DAILY 30 Days Qty: 30 3RF oxcarbazepine 150 mg tablet 150 mg PO DAILY Qty: 30 3RF trazodone 50 mg tablet 50 mg PO BEDTIME PRN (Reason: Sleep) 30 Days Qty: 30 3RF Discharge Orders: Discharge ED (Routine); Ordered 11/27/23 Ordered By: Alin Puga Referrals: Jose Murry FNP [Primary Care Provider] - 1 week Patient Instructions: Chest Pain - Noncardiac, Shortness of Breath (ED) Activity Restrictions/Additional Instructions: Your evaluation ER that included physical exam as well as lab work EKG and chest x-ray did not reveal any acute cardiac cause for your chest pain or shortness of breath. It is felt that they are noncardiac in nature. Please follow-up with your family practice physician in the next 7 days for further evaluation and treatment. Coding Level of Care Code ED Mechanical Technologist for [facility]
[2023-11-27 00:55] LABS: Basophils # 0.1 10^3/uL (0.0-0.1); Basophils % 1.2 %; Eosinophils # 0.1 10^3/uL (0.0-0.8); Eosinophils % 0.7 %; Hematocrit 47.5 % (37-53); Lymphocytes # 3.3 10^3/uL (1.5-6.5); Lymphocytes % 30.1 %; Mean Corpuscular HGB Conc 32.6 g/dL (30-55); Mean Corpuscular Hemoglobin 30.2 pg (27-33); Mean Corpuscular Volume 92.6 fl (82-101); Mean Platelet Volume 10.7 fL (7.4-10.4); Monocytes # 0.7 10^3/uL (0.2-0.9); Monocytes % 6.6 %; Neutrophils # 6.67 10^3/uL (1.8-8.0); Neutrophils % 61.2 %; Nucleated Red Blood Cells % 0 %; Platelet Count 301 10^3/cmm (157-399); Red Blood Count 5.13 10^6/uL (3.85-5.65); Red Cell Distribution Width 12.6 % (12.1-15.1)
[2023-11-27 00:59] VITALS: BP 125/91; PULSE 66; RESP 18; O2SAT 97
[2023-11-27 01:13] LABS: Troponin(5th) Baseline < 6 ng/L (0-15)
--- NOTE | 2023-11-27 01:13 | ECG_ITS ---
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 Requested By: Alin Puga Order Number: [id number] Reading MD: JONNY HARTMAN Measurements Intervals [place] Rate: 61 P: 29 MT: 160 QRS: 23 QRSD: 103 T: 15 QT: 378 QTc: 383 Interpretive Statements SINUS RHYTHM POSSIBLE LEFT VENTRICULAR HYPERTROPHY [VOLTAGE CRITERIA PLUS LAE OR QRS WIDENING] NONSPECIFIC T-WAVE ABNORMALITY Compared to ECG 10/28/2023 23:02:06 T-wave abnormality now present Electronically Signed On 11-27-2023 20:06:16 CDT by JONNY HARTMAN [email or web address] Dating by [facility].[employer]/store/OM/[id number]
[2023-11-27 01:14] LABS: Alanine Aminotransferase 19 U/L (0-41); Albumin Level 4.5 g/dL (3.5-5.2); Alkaline Phosphatase 72 U/L (40-130); Anion Gap 15.4 (5-19); Aspartate Amino Transferase 17 U/L (0-40); Blood Urea Nitrogen 14 mg/dL (6-20); Calcium 8.9 mg/dL (8.5-10.5); Carbon Dioxide 21 mmol/L (22-29); Chloride 108 mmol/L (98-107); Creatinine Clr Calc Pharmacy 240.4552; Globulin 2.6 g/dL (1.3-4.6); Glomerular Filtration Rate 143.8 mL/min (90-130); Glucose 105 mg/dL (65-115); Osmolality Calculated 291 mOsm/kg (285-295); Potassium 4.4 mmol/L (3.5-5.1); Sodium 140 mmol/L (136-145); Total Bilirubin 0.2 mg/dL (0.15-1.2); Total Protein 7.1 g/dL (6.6-8.7)
[2023-11-27 01:54] VITALS: BP 154/89; PULSE 67; RESP 18; O2SAT 96
== END 2023-11-27 01:53 | disposition home or self-care (01) ==
PROVIDERS: Emergency Provider Emergency Medicine; PCP Nurse Practitioner Family
DX: R06.02 Shortness of breath (principal); R07.9 Chest pain, unspecified
CPT/HCPCS: 36415; 71045; 80053; 84484; 85025; 93005; 99285

== ENCOUNTER 2024-08-19 10:50 | Emergency (ER) | payer MEDICAID, SELFPAY ==
--- OUTSIDE RECORDS SUMMARY | 2020-08-12 06:45 | XMS_ITS | Continuity of Care Document ---
Author Organization [facility] Address [address] [id number] [address] Phone Care Team Providers Care Sawmill Worker Name Role Phone Joseph Wright DDS Unavailable Unavailabl e Medications Medication Instructions Dosage Effective Dates (start - stop) Status Comments clonazepam 1 mg tablet Take 1 (one) tablet 1 (one) hour prior to procedure. - Active Peridex 0.12 % mouthwash place 15 milliliter by mucous membrane route 2 times every day in the mouth (after meals), swish in mouth for 30 seconds then spit out 15.00 milliliter - Active Antimicrobial mouth rinse after Oral Surgery. start using after 2nd day of surgery. Percocet 5 mg-325 mg tablet take 1 (one) tablet by oral route 1 (one) hour prior to procedure. Take 1 (one) tab q6h PRN pain after surgery. - Active ibuprofen 800 mg tablet take 1 tablet by oral route 3 times every day with food 800 MG - Active Anti-inflammator y caused by Oral Surgery, Do not used more than 3000mg per day. sertraline 25 mg tablet take 1 tablet by oral route every day 25 MG - Active guanfacine 1 mg tablet take 1 tablet by oral route every day at bedtime 1 MG - Active ranitidine 150 mg capsule take 1 capsule by oral route 2 times every day - Active Procedures Procedure Date Removal Of Impacted Tooth Completely Bony Removal Of Impacted Tooth Completely Bony Removal Of Impacted Tooth Completely Bony Removal Of Impacted Tooth Completely Bony Non-Intravenous Conscious Sedation EDR Approval Note Limited Oral Evaluation Problem Focused No Work Today/No Charge EDR Approval Note Oral Hygiene Instructions Nutritional Counseling For Control Of De ntal Disea Caries High Risk Bitewings Four Films Periodic Oral Evaluation Established Patient Topical Fluoride Varnish; Therapeutic Ap plication Prophylaxis Child EDR Approval Note Oral Hygiene Instructions Nutritional Counseling For Control Of De ntal Disea Caries High Risk Oral Hygiene Instructions Caries High Risk Sealant Per Tooth Sealant Per Tooth Sealant Per Tooth Amalgam One Surface, Primary Or Permanent Oral Hygiene Instructions Caries High Risk EDR Approval Note Bitewings Two Films Intraoral Periapical First Film Intraoral Periapical Each Additional Film Intraoral Periapical Each Additional Film Panoramic Film Prophylaxis Child Topical Fluoride Varnish; Therapeutic Ap plication Comprehensive Oral Evaluatio n New Or Established Oral Hygiene Instructions Caries Moderate Risk EDR Approval Note Advance Directives Directive Yes / No Effective Date File Name No Information Encounters Encounter Description Practice Location Reason(s) For Visit Diagnoses Date Provider Providers Copied on Encounter [facility], [id number], [id number], [place] tel:[phone] [facility] Encounter for dental exam and cleaning w/o abnormal findings 1 Adriana Ruiz. [address] [place] [address], [address], [place]. tel:[phone] Referring Provider: Joseph Wright, [address] [place] [address], [address]. tel:[phone] [facility], [id number], [id number], [place] tel:[phone] [facility] Encounter for dental exam and cleaning w/o abnormal findings 1 Adriana Ruiz. [address] [place] [address], [address], [place]. tel:[phone] Referring Provider: Joseph Wright, [address] [place] [address], [address]. tel:[phone] [facility], [id number], [id number], [place] tel:[phone] [facility] Encounter for dental exam and cleaning w/o abnormal findings 6 Harry Latham. [address] [place] [address], [address], [place]. tel:[phone] Referring Provider: Yeison Mcdonald, [address] [place] [address], [address]. tel:[phone] [facility], [id number], [id number], [place] tel:[phone] [facility] Encounter for dental exam and cleaning w/o abnormal findings 6 Harry Latham. [address] [place] [address], [address], [place]. tel:[phone] Referring Provider: Yeison Mcdonald, [address] [place] [address], [facility]. tel:[phone] [facility], [id number] [facility], [place], [place], [id number], tel:[phone] [facility] No Information 6 Harry Latham. [address] [place] [address], [address], [place]. tel:[phone] Referring Provider: Yeison Mcdonald, [address] [place] [address], [address]. tel:[phone] [facility], [id number] [facility], [place], [place], [id number], tel:[phone] [facility] Encounter for dental exam and cleaning w/o abnormal findings No Information Family History Family Member Type Diagnosis Age At Onset Mother Problem (finding) Alive and well Payers Payer name Insurance type Covered constitution party ID Yobani heardeloina(s) D [employer] CI [id number] Social History Type Description Quantity Date Captured Comments Sex Male Smoking Status No Information Chief Complaint And Reason For Visit No Information Reason For Referral Reason For Referral No Information History Of Present Illness Encounter Date Complaint History Of Prese nt Illness No Information Functional Status Date Functional Assessmen t No Information Instructions Date Instruction Additional Infor mation No Information Assessments Type Assessment Date No Information Patient Care Teams Name Effective Dates (start - stop) Status Members No Information
[2024-08-19 11:11] VITALS: BP 182/82; PULSE 91; RESP 18; TEMP 36.6; O2SAT 98; BMI 40.0
--- NOTE | 2024-08-19 12:52 | XRR_ITS ---
PROCEDURE INFORMATION: Exam: XR Chest Exam date and time: 08/19/2024 12:58 PM Age: 18 years old Clinical indication: Cough TECHNIQUE: Imaging protocol: Radiologic exam of the chest. Views: 1 view. COMPARISON: CR XR chest 1V portable [id number] 11/27/2023 12:58 AM FINDINGS: Lungs: No focal lung consolidation. Pleural spaces: No pleural effusion. No pneumothorax. Heart/Mediastinum: No cardiomegaly. Bones/joints: No acute bony abnormality. XR/XR chest 1V portable [id number] IMPRESSION: No focal lung consolidation.
--- NOTE | 2024-08-19 12:53 | W.ED.NAVMDI ---
HPI - Nausea/Vomiting/Diarrhea General: Chief complaint: Nausea/Vomiting/Diarrhea Stated complaint: Diarhea/Headache/Runny nose Time Seen by Provider: 08/19/24 12:25 Source: patient Mode of arrival: ambulatory Limitations: no limitations History of Present Illness: 18-year-old male states he has been having nausea vomiting diarrhea for the last week. He states he has also had cough congestion and some bodyaches. He denies any fevers he denies any worse or improving factors. Denies any known sick contacts. Associated nausea: Yes Associated symtoms: Reports nausea; Denies chest pain, dysuria or headache(s) Related Data Home Medications ?Medication ?Instructions ?Recorded ?Confirmed escitalopram oxalate 10 mg tablet 10 mg PO .@1PM 08/19/24 08/19/24 ibuprofen 800 mg tablet 800 mg PO TID PRN Pain 08/19/24 08/19/24 Previous Rx's ?Medication ?Instructions ?Recorded ondansetron 4 mg disintegrating 4 mg PO Q6H PRN nausea and 08/19/24 tablet vomiting #14 tabs Allergies Allergy/AdvReac Type Severity Reaction Status Date / Time hydroxyzine Allergy Severe Dizzy, Verified 11/27/23 00:31 seeing tri-vision, anaphylaxis. menthol (From BenGay) Allergy Severe Throat Verified 11/27/23 00:31 swelleed methyl salicylate (From Allergy Severe Throat Verified 11/27/23 00:31 BenGay) swelleed amoxicillin Allergy Intermediate ALGY-Rash Verified 11/27/23 00:31 cefdinir (From Omnicef) Allergy Unknown Unknown Verified 11/27/23 00:31 Review of Systems Const: Reports: body aches; Denies: fever(s), chills or change in appetite ENMT: Reports: throat pain; Denies: dental pain Card: Denies: chest pain Resp: Reports: non-productive cough; Denies: dyspnea GI: Reports: nausea, vomiting and diarrhea; Denies: abdominal pain : Denies: dysuria Musc: Denies: neck pain or back pain Skin/Breast: Denies: rash Neuro: Denies: headache(s) PFSH ED PFSH: Medical History Bipolar disorder, curr episode mixed, severe, w/o psychotic features Psychiatric care No pertinent past medical history Surgical History No history of previous surgery Social History Smoking and tobacco/nicotine status: never used tobacco/nicotine Second hand smoke exposure: No Alcohol intake: former Substance/Drug Use: former Current gender identity: Male Physical Exam Const: COMMON NORMALS: no acute distress, patient oriented x3 and healthy appearing HENMT: COMMON NORMALS: normocephalic and atraumatic HEAD & SCALP: normocephalic and atraumatic Eye: COMMON NORMALS: conjunctivae normal CONJUNCTIVA: Yes conjunctivae normal Neck/C-Spine: COMMON NORMALS: full ROM and supple Chest: COMMONS NORMALS: normal inspection of the chest Resp: COMMON NORMALS: normal respiratory effort, No retractions, No use of accessory muscles and clear to auscultation bilaterally AUSCULTATION: clear to auscultation bilaterally Cardio: COMMON NORMALS: regular rate, regular rhythm and No murmurs present (Cardio) RATE: regular rate RHYTHM: regular rhythm GI: COMMON NORMALS: Normal to inspection, nondistended, normoactive bowel sounds present, Soft to palpation, non-tender and no masses PALPATION: Yes Soft to palpation Extremity: COMMON NORMALS: normal to inspection and full ROM Neuro: COMMON NORMALS: patient oriented x3, moves all extremities and no focal motor deficits Psych: COMMON NORMALS: mental status grossly normal, Normal thought process present and cooperative THOUGHT PROCESS: Normal thought process present Skin: COMMON NORMALS: no rashes or lesions noted and no wounds GENERAL SKIN EXAM: no rashes or lesions noted Course Vital Signs: Vital signs: Vital Signs Temperature 97.9 F 08/19/24 11:11 Pulse Rate 71 08/19/24 13:56 Respiratory Rate 22 H 08/19/24 13:56 Blood Pressure 135/82 08/19/24 13:56 Pulse Oximetry 98 08/19/24 13:56 Oxygen Delivery Me thod Room Air 08/19/24 11:11 MDM - Nausea/Vomiting/Diarrhea Medical Decision Making Patient presents. Vomiting diarrhea is likely a viral gastroenteritis blood work here is normal he feels improved will prescribe him Zofran he is to follow-up with PCP and return if worsening he understands agrees to plan. Medical Records I reviewed the patient's medical records. Lab Data I reviewed the patient's lab results. 08/19/24 12:53 08/19/24 12:53 Radiology Impressions Chest X-Ray 08/19/24 12:52 IMPRESSION: No focal lung consolidation. Laboratory Results WBC 7.66 10^3/uL (4.5-13.0) 08/19/24 12:53 RBC 5.63 10^6/uL (3.85-5.65) 08/19/24 12:53 Hgb 16.00 g/dL (13.2-15.6) H 08/19/24 12:53 Hct 50.4 % (37-53) 08/19/24 12:53 MCV 89.5 fl (82-101) 08/19/24 12:53 MCH 28.4 pg (27-33) 08/19/24 12:53 MCHC 31.7 g/dL (30-55) 08/19/24 12:53 RDW 13.9 % (12.1-15.1) 08/19/24 12:53 Plt Count 252 10^3/cmm (157-399) 08/19/24 12:53 MPV 10.8 fL (7.4-10.4) H 08/19/24 12:53 Neut % (Auto) 60.2 % 08/19/24 12:53 Lymph % (Auto) 23.9 % 08/19/24 12:53 [place] % (Auto) 10.7 % 08/19/24 12:53 Eos % (Auto) 3.9 % 08/19/24 12:53 Baso % (Auto) 0.9 % 08/19/24 12:53 Neut # (Auto) 4.61 10^3/uL (1.8-8.0) 08/19/24 12:53 Lymph # (Auto) 1.8 10^3/uL (1.5-6.5) 08/19/24 12:53 [place] # (Auto) 0.8 10^3/uL (0.2-0.9) 08/19/24 12:53 Eos # (Auto) 0.3 10^3/uL (0.0-0.8) 08/19/24 12:53 Baso # (Auto) 0.1 10^3/uL (0.0-0.1) 08/19/24 12:53 Nucleated RBC % (auto) 0 % 08/19/24 12:53 Nucleated RBCs # 0.0 /100WBC 08/19/24 12:53 Sodium 141 mmol/L (136-145) 08/19/24 12:53 Potassium 4.1 mmol/L (3.5-5.1) 08/19/24 12:53 Chloride 105 mmol/L (98-107) 08/19/24 12:53 Carbon Dioxide 23 mmol/L (22-29) 08/19/24 12:53 Anion Gap 17.1 (5-19) 08/19/24 12:53 BUN 8 mg/dL (6-20) 08/19/24 12:53 Creatinine 0.7 mg/dL (0.7-1.2) 08/19/24 12:53 GFR Calculation 143.8 mL/min (90-130) H 08/19/24 12:53 Glucose 92 mg/dL (65-115) 08/19/24 12:53 Calculated Osmolality 290 mOsm/kg (285-295) 08/19/24 12:53 Calcium 9.3 mg/dL (8.5-10.5) 08/19/24 12:53 Total Bilirubin 0.4 mg/dL (0.15-1.2) 08/19/24 12:53 AST 21 U/L (0-40) 08/19/24 12:53 ALT 28 U/L (0-41) 08/19/24 12:53 Alkaline Phosphatase 71 U/L (40-130) 08/19/24 12:53 Total Protein 7.4 g/dL (6.6-8.7) 08/19/24 12:53 Albumin 4.1 g/dL (3.5-5.2) 08/19/24 12:53 Globulin 3.3 g/dL (1.3-4.6) 08/19/24 12:53 Lipase 16 U/L (13-60) 08/19/24 12:53 Influenza A (PCR) Negative (Negative) 08/19/24 13:30 Influenza Type B (PCR) Negative (Negative) 08/19/24 13:30 RSV (PCR) Negative (Negative) 08/19/24 13:30 SARS-CoV-2 (PCR) Negative (Negative) 08/19/24 13:30 No radiology studies performed this visit Discharge Plan Discharge Patient Disposition: Home Clinical Impression: Vomiting, Diarrhea Condition: Stable Prescriptions: New ondansetron 4 mg tablet,disintegrating 4 mg PO Q6H PRN (Reason: nausea and vomiting) Qty: 14 0RF No Action ibuprofen 800 mg tablet 800 mg PO TID PRN (Reason: Pain) escitalopram oxalate 10 mg tablet 10 mg PO .@1PM Discharge Orders: Discharge ED (Routine); Ordered 08/19/24 Ordered By: Rashid Barger Referrals: Jose Murry FNP [Primary Care Provider] - 4-7 days Discharge Diet: Advance as tolerated Discharge Activity: Resume usual activity Patient Instructions: Acute Nausea and Vomiting (ED), Acute Diarrhea (ED) Print Language: Swedish Coding Level of Care 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
[2024-08-19 13:12] LABS: Hematocrit 50.4 % (37-53); Hemoglobin 16.00 g/dL (13.2-15.6); Mean Corpuscular HGB Conc 31.7 g/dL (30-55); Mean Corpuscular Hemoglobin 28.4 pg (27-33); Mean Corpuscular Volume 89.5 fl (82-101); Nucleated Red Blood Cells % 0 %; Platelet Count 252 10^3/cmm (157-399); Red Blood Count 5.63 10^6/uL (3.85-5.65); White Blood Count 7.66 10^3/uL (4.5-13.0)
[2024-08-19] MEDS: ondansetron 2 mg/ML SDV 2 mL 4 MG IVP (13:19)
[2024-08-19 13:27] LABS: Alanine Aminotransferase 28 U/L (0-41); Albumin Level 4.1 g/dL (3.5-5.2); Alkaline Phosphatase 71 U/L (40-130); Anion Gap 17.1 (5-19); Aspartate Amino Transferase 21 U/L (0-40); Blood Urea Nitrogen 8 mg/dL (6-20); Calcium 9.3 mg/dL (8.5-10.5); Carbon Dioxide 23 mmol/L (22-29); Chloride 105 mmol/L (98-107); Creatinine Clr Calc Pharmacy 231.5533; Globulin 3.3 g/dL (1.3-4.6); Glucose 92 mg/dL (65-115); Lipase 16 U/L (13-60); Osmolality Calculated 290 mOsm/kg (285-295); Potassium 4.1 mmol/L (3.5-5.1); Sodium 141 mmol/L (136-145); Total Protein 7.4 g/dL (6.6-8.7)
[2024-08-19 13:56] VITALS: BP 135/82; PULSE 71; RESP 22; O2SAT 98
[2024-08-19 14:44] LABS: Respiratory Syncytial Virus Ce NEGATIVE (Negative); SARS-CoV-2 PCR NEGATIVE (Negative)
[2024-08-19 15:19] VITALS: BP 143/83; PULSE 81; O2SAT 96
== END 2024-08-19 15:20 | disposition home or self-care (01) ==
PROVIDERS: Emergency Provider Emergency Medicine; PCP Nurse Practitioner Family
DX: R11.10 Vomiting, unspecified (principal); R19.7 Diarrhea, unspecified; Z11.52 Encounter for screening for COVID-19
CPT/HCPCS: 36415; 71045; 80053; 83690; 85025; 87637; 96374; 99284; J2405; J7030; J9999